=== PATIENT | female | born 1980 | race African-American/Black ===

== ENCOUNTER 2016-04-13 09:44 | Inpatient (IN) | payer OTHER ==
--- NOTE | 2016-04-13 10:02 | PDOC ---
History of Present Illness <Gilmar Ace - Last Filed: 04/13/16 13:34> - General History Source: Patient Exam Limitations: No Limitations - History of Present Illness Initial Comments: 04/13/16 10:19 The patient is a 35 year old female with significant past medical history of sciatica who presents to the ED with nausea, epigastric pain and vomiting since this morning. Patient notes that she had multiple vomiting episodes and reports bilious vomit, non bloody. She also reports loose stools. She notes that the last thing she ate last night was a piece of cake with icing and whole milk. She denies any fever, chills, constipation, headache, blurry vision. She denies dysuria, hesitancy, frequency or hematuria. <Radha Hutchinson - Last Filed: 04/13/16 13:52> - General Chief Complaint: Pain, Acute Stated Complaint: ABD PAIN., VOMITING Time Seen by Provider: 04/13/16 10:01 Past History - Past Medical History Other medical history: SIATIC PAIN - Psycho/Social/Smoking Cessation Hx Suicidal Ideation: No Smoking History: Never smoked Hx Alcohol Use: Yes (OCCASIONALLY) Drug/Substance Use Hx: No <Gilmar Ace - Last Filed: 04/13/16 13:34> <Radha Hutchinson - Last Filed: 04/13/16 13:52> - Past Medical History Allergies/Adverse Reactions: Allergies Allergy/AdvReac Type Severity Reaction Status Date / Time No Known Allergies Allergy Verified 04/13/16 09:51 Home Medications: Ambulatory Orders NK [No Known Home Medication] 04/13/16 Review of Systems - Review of Systems Able to Perform ROS?: Yes Comments:: 04/13/16 10:24 GENERAL/CONSTITUTIONAL: No fever or chills. No weakness. HEAD, EYES, EARS, NOSE AND THROAT: No change in vision. No ear pain or discharge. No sore throat. CARDIOVASCULAR: No chest pain or shortness of breath. RESPIRATORY: No cough, wheezing, or hemoptysis. GASTROINTESTINAL: + nausea, +vomiting, +diarrhea, +epigastric pain. No constipation. GENITOURINARY: No dysuria, frequency, or change in urination. MUSCULOSKELETAL: No joint or muscle swelling or pain. No neck or back pain. SKIN: No rash NEUROLOGIC: No headache, vertigo, loss of consciousness, or change in strength/ sensation. ENDOCRINE: No increased thirst. No abnormal weight change. HEMATOLOGIC/LYMPHATIC: No anemia, easy bleeding, or history of blood clots. ALLERGIC/IMMUNOLOGIC: No hives or skin allergy. <Radha Hutchinson - Last Filed: 04/13/16 13:52> *Physical Exam - Vital Signs Last Vital Signs Temp Pulse Resp BP Pulse Ox 97.5 F L 74 20 150/74 97 04/13/16 09:48 04/13/16 09:48 04/13/16 09:48 04/13/16 09:48 04/13/16 09:48 <Gilmar Ace - Last Filed: 04/13/16 13:34> - Vital Signs Last Vital Signs Temp Pulse Resp BP Pulse Ox 97.5 F L 74 20 150/74 97 04/13/16 09:48 04/13/16 09:48 04/13/16 09:48 04/13/16 09:48 04/13/16 09:48 - Physical Exam Comments: 04/13/16 10:23 GENERAL: Awake, alert, and fully oriented, in no acute distress HEAD: No signs of trauma EYES: PERRLA, EOMI, sclera anicteric, conjunctiva clear ENT: Auricles normal inspection, hearing grossly normal, nares patent, oropharynx clear without exudates. Moist mucosa NECK: Normal ROM, supple, no lymphadenopathy, JVD, or masses LUNGS: Breath sounds equal, clear to auscultation bilaterally. No wheezes, and no crackles HEART: Regular rate and rhythm, normal S1 and S2, no murmurs, rubs or gallops ABDOMEN: +epigastric tenderness, +obese. Soft, normoactive bowel sounds. No guarding, no rebound. No masses EXTREMITIES: Normal range of motion, no edema. No clubbing or cyanosis. No cords, erythema, or tenderness NEUROLOGICAL: Cranial nerves II through XII grossly intact. Normal speech, normal gait SKIN: Warm, Dry, normal turgor, no rashes or lesions noted. <Radha Hutchinson - Last Filed: 04/13/16 13:52> ED Treatment Course - LABORATORY CBC & Chemistry Diagram: 04/13/16 10:20 04/13/16 10:20 <Gilmar Ace - Last Filed: 04/13/16 13:34> - LABORATORY CBC & Chemistry Diagram: 04/13/16 10:20 04/13/16 10:20 - RADIOLOGY Radiology Studies Ordered: 04/13/16 12:45 EXAM#: TYPE/EXAM: RESULT: US/GALLBLADDER US Abdominal ultrasound, right upper quadrant: HISTORY: Biliary colic. Ultrasound of the right upper quadrant the abdomen is performed. The liver is somewhat heterogeneous echotexture without discrete mass seen. The liver measures 14.2 cm in length. Multiple stones are seen in the gallbladder. There is a gallstone in the neck of the gallbladder which may be impacted. Gallbladder wall is slightly thickened measuring 3.8 mm. CBD measures 5.8 mm. The pancreas is not visualized in its entirety. Visualized portions demonstrate no mass. The right kidney is not optimally visualized. The right kidney measures 9.4 cm in length with no evidence of hydronephrosis. Visualized abdominal aorta demonstrates no evidence of abdominal aortic aneurysm. Visualized IVC is unremarkable. Main portal vein demonstrates normal directional flow. IMPRESSION: Gallstones with possible impacted stone in the neck the gallbladder. Gallbladder wall thickening. Findings raise concern for cholecystitis. Findings were discussed with Dr. Ace at 12:39 PM on April 13, 2016. <Radha Hutchinson - Last Filed: 04/13/16 13:52> Medical Decision Making - Medical Decision Making 04/13/16 10:21 35 year old female with significant past medical history of sciatica who presents to the ED with nausea, epigastric pain and vomiting since this morning. She states she ate cake with icing and cup of whole milk before going to bed. Patient is actively vomiting bilious non bloody vomit in the ED. Will order US, labs and medication. Will reassess after the results are back. 04/13/16 12:42 Dr. Fabian was contacted to discuss the case after reviewing the US results. Who stated that he will perform gallbladder surgery tomorrow. 04/13/16 12:47 A call was placed to Dr. Ruiz at her office. Awaiting a call back. 04/13/16 13:[address] Ruiz that accepts the admission. <Radha Hutchinson - Last Filed: 04/13/16 13:52> *DC/Admit/Observation/Transfer - Discharge Dispostion Admit: Yes - Attestations Physician Attestion: 04/13/16 10:01 I, Dr. Gilmar Ace, attest that this document has been prepared under my direction and personally reviewed by me in its entirety. I further attest, that it accurately reflects all work, treatment, procedures and medical decision -making performed by me. <Gilmar Ace - Last Filed: 04/13/16 13:34> - Attestations Scribe Attestion: 04/13/16 10:23 Documentation prepared by DAVIDE Cisse, acting as medical billing assistant for Gilmar Ace MD/. <Radha Hutchinson - Last Filed: 04/13/16 13:52> Diagnosis at time of Disposition: Cholecystitis Cholelithiasis Qualifiers: Cholelithiasis location: gallbladder and bile duct Cholecystitis acuity: acute Biliary obstruction: without biliary obstruction - Discharge Dispostion Condition at time of disposition: Unchanged/Unknown
[2016-04-13] MEDS ORDERED: morphine CARPU-JECT 4 MG/1 ML DISP.SYRIN IVPUSH ONE (10:07)
[2016-04-13] MEDS ORDERED: ONDANSETRON 4 MG/2 ML VIAL IVPUSH ONE (10:07)
[2016-04-13] MEDS ORDERED: ONDANSETRON 4 MG/2 ML VIAL ONE (10:08)
[2016-04-13] MEDS ORDERED: morphine CARPU-JECT 4 MG/1 ML DISP.SYRIN ONE (10:08)
[2016-04-13 11:03] LABS: BASOPHIL 0.9 % (0-2.0); MCH 27.7 pg (25.7-33.7); MCHC 32.7 g/dl (32.0-36.0); MEAN CELL VOLUME 84.8 fl (80-96); MEAN PLT VOLUME 8.4 fl (7.5-11.1); NEUTROPHILS 76.9 % (42.8-82.8); PLATELET COUNT 292 K/MM3 (134-434); RDW 14.7 % (11.6-15.6); WHITE BLOOD COUNT 8.7 K/mm3 (4.0-10.0)
[2016-04-13 11:18] LABS: INR 1.05 (0.82-1.09); PROTHROMBIN TIME (PATIENT) 11.6 SEC (9.98-11.88)
[2016-04-13 11:33] LABS: ALBUMIN 3.8 g/dl (3.4-5.0); ALK PHOS 73 U/L (45-117); ANION GAP 11 (8-16); BILIRUBIN,TOTAL 0.6 mg/dL (0.2-1.0); CALCIUM 8.5 mg/dL (8.5-10.1); CO2 21 mmol/L (21-32); CREATININE 0.7 mg/dL (0.55-1.02); GLUCOSE,RANDOM 100 mg/dL (74-106); SGOT/AST 33 U/L (15-37); SGPT/ALT 26 U/L (12-78); TOT PROT 7.2 g/dl (6.4-8.2)
[2016-04-13] MEDS ORDERED: METRONIDAZOLE 500 MG PREMIXED 100 ML IVPB ONE ×2 (13:33→14:07)
[2016-04-13] MEDS ORDERED: LEVOFLOXACIN 750 MG IVPB 150 ML IVPB ONE ×2 (13:33→18:45)
[2016-04-13] MEDS ORDERED: ONDANSETRON *ODT* 4 MG TABLET SL ONE (13:38)
[2016-04-13] MEDS ORDERED: OXYCODONE/APAP 5/325MG COMBO TABLET PO ONE (13:38)
[2016-04-13] MEDS ORDERED: OXYCODONE/APAP 5/325MG COMBO TABLET ONE (13:59)
[2016-04-13] MEDS ORDERED: ONDANSETRON *ODT* 4 MG TABLET ONE (14:00)
--- NOTE | 2016-04-13 14:22 | CONSULT ---
- Consultation CONSULT REQUEST: Dr. Pedro Fabian CONSULT REQUEST: We have been asked to surgically evaluate this patient for cholecystitis. PCP: Aimee Ruiz HISTORY OF PRESENT ILLNESS: 35 yo F presented to [facility] ED complaining of RUQ/ epigastric abdominal pain x1 day. Patient states the pain work her up this morning at 7AM. The pain was constant and severe, improved now due to morphine she received in the ED. She states she was told she had gallstones one year ago following a CT. She states she occasionally has had abdominal pain in the past , but not like this. Her last meal was chicken and cake for dinner last night. Her last BM was liquid this morning. She admits nausea and several episodes of vomiting today. She denies fever, chills, CP, SOB, constipation, dysuria. PMHx: Right sciatic pain PSHx: Denies SocialHx: Denies tobacco use or alcohol abuse Home Medications Medication Instructions Recorded NK [No Known Home Medication] 04/13/16 Allergies Allergy/AdvReac Type Severity Reaction Status Date / Time No Known Allergies Allergy Verified 04/13/16 09:51 REVIEW OF SYSTEMS: CONSTITUTIONAL: Absent: fever, chills, generalized weakness CARDIOVASCULAR: Absent: chest pain, palpitations, lightheadedness, peripheral edema RESPIRATORY: Absent: cough, shortness of breath GASTROINTESTINAL: Present: abdominal pain, nausea, vomiting, diarrhea Absent: abdominal distension, constipation, melena, hematochezia GENITOURINARY: Absent: dysuria, frequency, urgency MUSCULOSKELETAL: Present: Right sided sciatic pain Absent: myalgia, arthralgia SKIN: Absent: rash, itching HEMATOLOGIC/IMMUNOLOGIC: Absent: easy bleeding, easy bruising NEUROLOGIC: Absent: headache, dizziness, unsteady gait PSYCHIATRIC: Absent: anxiety, depression PHYSICAL EXAM: GENERAL: Awake, alert, and fully oriented, in no acute distress. HEAD: Normal with no signs of trauma. EYES: PERRL, sclera anicteric, conjunctiva clear. NECK: Normal ROM, supple without JVD, or masses. LUNGS: Clear to auscultation bilat anteriorly. No wheezes, and no crackles. No accessory muscle use. HEART: Regular rate and rhythm. No murmurs ABDOMEN: Obese, Soft, not distended, normoactive bowel sounds, tender to palp in epigastric region/RUQ, no guarding, no rebound, no masses MUSCULOSKELETAL: Normal ROM at all joints UPPER EXTREMITIES: 2+ pulses, warm, well-perfused. No peripheral edema. LOWER EXTREMITIES: 2+ pulses, warm, well-perfused. No calf tenderness. No peripheral edema. NEUROLOGICAL: Normal speech, gait not observed. PSYCH: Cooperative. Good eye contact. Appropriate mood and affect. SKIN: Warm, dry, normal turgor, no rashes or lesions noted. Vital Signs Temperature 97.5 F L 04/13/16 09:48 Pulse Rate 74 04/13/16 09:48 Respiratory Rate 20 04/13/16 09:48 Blood Pressure 150/74 04/13/16 09:48 O2 Sat by Pulse Oximetry (%) 97 04/13/16 09:48 Lab Results CBC, BMP 04/13/16 10:20 04/13/16 10:20 Hepatic Panel Total Bilirubin 0.6 mg/dL (0.2-1.0) D 04/13/16 10:20 AST 33 U/L (15-37) D 04/13/16 10:20 ALT 26 U/L (12-78) D 04/13/16 10:20 Alkaline Phosphatase 73 U/L (45-117) 04/13/16 10:20 Albumin 3.8 g/dl (3.4-5.0) 04/13/16 10:20 Abdominal ultrasound, right upper quadrant: Multiple stones in the gallbladder. Gallstone in the neck of the gallbladder. Gallbladder wall slightly thickened measuring 3.8 mm. CBD 5.8 mm. Findings raise concern for cholecystitis. Problem List - Problems (1) Cholecystitis Assessment/Plan: Patient discussed with Dr. Fabian Plan for OR tomorrow for laparoscopic cholecystectomy, possible open Consent to be obtained by Dr. Fabian NPO after midnight, IV fluids Pain control DVT prophylaxis-SCDs Code(s): K81.9 - CHOLECYSTITIS, UNSPECIFIED (2) Cholelithiasis Code(s): K80.20 - CALCULUS OF GALLBLADDER W/O CHOLECYSTITIS W/O OBSTRUCTION Qualifiers: Cholelithiasis location: gallbladder and bile duct Cholecystitis acuity : acute Biliary obstruction: without biliary obstruction Visit type - Case Type Case Type: ED Admission - New patient This patient is new to me today: Yes Date on this admission: 04/13/16
[2016-04-13 14:55] VITALS: BMI 39.3
[2016-04-13] MEDS: HYDROmorphone HCL CARPU-JECT 1 MG/1 ML DISP.SYRIN IVPB PRN (18:33)
[2016-04-13] MEDS: SODIUM CHLORIDE 1,000 ML IV SCH (18:34)
--- NOTE | 2016-04-13 21:12 | HP ---
Admitting History and Physical - Primary Care Physician PCP: Aimee Ruiz - Admission History of Present Illness: The patient is a 35 year old female with significant past medical history of sciatica who presents to the ED with nausea, epigastric pain and vomiting since this morning. Patient notes that she had multiple vomiting episodes and reports bilious vomit, non bloody. She also reports loose stools. She notes that the last thing she ate last night was a piece of cake with icing and whole milk. - Smoking History Smoking history: Never smoked - Alcohol/Substance Use Hx Alcohol Use: Yes (OCCASIONALLY) Home Medications - Allergies Allergies/Adverse Reactions: Allergies Allergy/AdvReac Type Severity Reaction Status Date / Time levofloxacin [From Levaquin] Allergy Intermediate Hives Verified 04/13/16 19:08 - Home Medications Home Medications: Ambulatory Orders NK [No Known Home Medication] 04/13/16 Physical Examination Vital Signs: Vital Signs Temperature 97.8 F 04/13/16 19:17 Pulse Rate 57 L 04/13/16 19:17 Respiratory Rate 16 04/13/16 19:17 Blood Pressure 124/63 04/13/16 19:17 O2 Sat by Pulse Oximetry (%) 99 04/13/16 15:37 Constitutional: Yes: No Distress HENT: Yes: Atraumatic Neck: Yes: Supple Cardiovascular: Yes: Regular Rate and Rhythm Respiratory: Yes: CTA Bilaterally Gastrointestinal: Yes: Normal Bowel Sounds, Tenderness (RUQ) Extremities: Yes: WNL Problem List - Problems (1) Cholecystitis Code(s): K81.9 - CHOLECYSTITIS, UNSPECIFIED Assessment/Plan Laboratory Tests 04/13/16 04/13/16 04/13/16 10:20 10:20 10:37 WBC 8.7 RBC 4.94 Hgb 13.7 Hct 41.9 MCV 84.8 MCHC 32.7 RDW 14.7 Plt Count 292 MPV 8.4 Neutrophils % 76.9 D Lymphocytes % 16.1 D Monocytes % 5.1 Eosinophils % 1.0 Basophils % 0.9 INR 1.05 Sodium 141 Potassium 3.7 Chloride 109 H Carbon Dioxide 21 D Anion Gap 11 BUN 12 D Creatinine 0.7 Creat Clearance w eGFR > 60 Random Glucose 100 Calcium 8.5 Total Bilirubin 0.6 D AST 33 D ALT 26 D Alkaline Phosphatase 73 Total Protein 7.2 Albumin 3.8 Lipase 56 L Blood Type Antibody Screen 04/13/16 04/13/16 17:20 18:36 WBC RBC Hgb Hct MCV MCHC RDW Plt Count MPV Neutrophils % Lymphocytes % Monocytes % Eosinophils % Basophils % INR Sodium Potassium Chloride Carbon Dioxide Anion Gap BUN Creatinine Creat Clearance w eGFR Random Glucose Calcium Total Bilirubin AST ALT Alkaline Phosphatase Total Protein Albumin Lipase Blood Type O POSITIVE O POSITIVE Antibody Screen Negative Active Medications Generic Name Dose Route Start Last Admin Trade Name Freq PRN Reason Stop Dose Admin Hydromorphone HCl 1 mg 04/13/16 17:14 04/13/16 18:33 Dilaudid Injection - IVPB 1 mg Q3H PRN Administration PAIN Sodium Chloride 1,000 mls @ 100 mls/hr 04/13/16 17:15 04/13/16 18:34 Normal Saline - IV 100 mls/hr ASDIR SOLEDAD Administration A/P 1.ACUTE CHOLECYSTITIS NPO, IVF, IV ABX PRN PAIN MEDS SURGERY CONSULT GI/DVT PPX
[2016-04-14] MEDS: SODIUM CHLORIDE 1,000 ML IV SCH ×2 (04:17→17:32)
[2016-04-14 07:33] LABS: BASOPHIL 1.1 % (0-2.0); EOSINOPHIL 2.8 % (0-4.5); MCH 28.1 pg (25.7-33.7); MCHC 32.9 g/dl (32.0-36.0); MEAN CELL VOLUME 85.4 fl (80-96); MEAN PLT VOLUME 8.3 fl (7.5-11.1); PLATELET COUNT 278 K/MM3 (134-434); RDW 14.6 % (11.6-15.6); WHITE BLOOD COUNT 5.9 K/mm3 (4.0-10.0)
[2016-04-14] MEDS: PANTOPRAZOLE SODIUM 40 MG/100 ML PRE-DOCKED IVPB SCH (09:52)
[2016-04-14] MEDS ORDERED: PANTOPRAZOLE SODIUM 40 MG in SODIUM CHLORIDE 100 ML IVPB SCH (10:00)
[2016-04-14 10:59] LABS: URINE APPEARANCE CLEAR; URINE BILIRUBIN NEGATIVE (NEGATIVE); URINE BLOOD NEGATIVE (NEGATIVE); URINE COLOR AMBER; URINE GLUCOSE (UA) NEGATIVE (NEGATIVE); URINE KETONE 1+ (NEGATIVE); URINE LEUK ESTERASE NEGATIVE (NEGATIVE); URINE NITRITE NEGATIVE (NEGATIVE); URINE PROTEIN NEGATIVE (NEGATIVE); URINE UROBILINOGEN NEGATIVE E.U./dl (0.2-1.0)
[2016-04-14] MEDS ORDERED: LIDOCAINE HCL/PF 2% SDV 5ML VIAL ONE (11:19)
[2016-04-14] MEDS ORDERED: MIDAZOLAM HCL 2 MG/2 ML SINGLE DOSE VIAL ONE (11:20)
[2016-04-14] MEDS ORDERED: PROPOFOL 20 ML ONE ×4 (11:20→14:41)
[2016-04-14] MEDS ORDERED: ROCURONIUM BROMIDE 50 MG/5 ML VIAL ONE ×2 (11:20→12:32)
--- NOTE | 2016-04-14 11:29 | PN ---
Progress Note (short form) - Note Progress Note: Attending Surgeon: No c/o; for lap celeste possible open today; r/b/t alternatives to surgery discussed; possible conversion to an open procedure discussed as well; informed consent obtained. Pedro Fabian MD FACS
[2016-04-14] MEDS ORDERED: ceFAZolin SODIUM 1 GM VIAL ONE (11:55)
[2016-04-14] MEDS ORDERED: DEXAMETHASONE SOD PHOSPHATE 4 MG/1 ML VIAL ONE (12:07)
[2016-04-14] MEDS ORDERED: KETOROLAC TROMETHAMINE 30 MG/1 ML VIAL ONE (12:07)
[2016-04-14] MEDS ORDERED: ceFAZolin SODIUM 1 GM VIAL IVPB ONE (12:09)
[2016-04-14] MEDS ORDERED: ONDANSETRON 4 MG/2 ML VIAL IVPUSH PRN (13:43)
[2016-04-14] MEDS ORDERED: PROMETHAZINE HCL 25 MG/1 ML VIAL IVPUSH PRN (13:43)
[2016-04-14] MEDS ORDERED: LACTATED RINGERS SOLUTION 1,000 ML IV SCH (13:45)
[2016-04-14] MEDS ORDERED: NEOSTIGMINE METHYLSULFATE 0.5 MG/ML - 10 ML MDV ONE (13:57)
[2016-04-14] MEDS ORDERED: GLYCOPYRROLATE 0.2 MG/1 ML VIAL ONE (13:58)
--- NOTE | 2016-04-14 15:27 | OP ---
Operative Note - Note: Operative Date: 04/14/16 Pre-Operative Diagnosis: cholelithiasis; acute cholecystitsi Operation: lap celeste Findings: acute cholecystitis; cholelithiasis Post-Operative Diagnosis: Same as Pre-op Surgeon: Pedro Fabian Hair And Makeup Designer: Roslyn Jimenez Anesthesia: General Specimens Removed: gallbladder and contents Estimated Blood Loss (mls): 20
--- NOTE | 2016-04-14 15:32 | SURG ---
Surgery Land Surveying Survey Worker Note Land Surveying Survey Worker: Roslyn Jimenez PA-C Date of Service: 04/14/16 Diagnosis: cholelithiasis, acute cholecystitis Procedure: laparoscopic cholecystectomy I was present for the entirety of the operative procedure. For further detail, please refer to operative report. Visit type - Case Type Case Type: ED Admission
[2016-04-14] MEDS ORDERED: oxyCODONE HCL 5 MG TABLET PO PRN (15:38)
[2016-04-14] MEDS ORDERED: ACETAMINOPHEN 325 MG TABLET (FP) PO PRN (15:39)
[2016-04-14] MEDS ORDERED: PROMETHAZINE HCL 25 MG/1 ML VIAL ONE (15:49)
[2016-04-14] MEDS: CEFAZOLIN (PRE-DOCKED) 50 ML IVPB SCH (18:00)
--- NOTE | 2016-04-14 19:20 | PN ---
Progress Note, Physician - Current Medication List Current Medications: Active Medications Acetaminophen (Tylenol -) 650 mg PO Q4H PRN PRN Reason: FEVER OR PAIN Hydromorphone HCl (Dilaudid Injection -) 1 mg IVPB Q3H PRN PRN Reason: PAIN Last Admin: 04/13/16 18:33 Dose: 1 mg Sodium Chloride (Normal Saline -) 1,000 mls @ 100 mls/hr IV ASDIR SOLEDAD Last Admin: 04/14/16 17:32 Dose: 0 mls Lactated Ringer's (Lactated Ringers Solution) 1,000 mls @ 125 mls/hr IV ASDIR SOLEDAD Cefazolin Sodium (Ancef 1gm Ivpb (Pre-Docked)) 50 mls @ 100 mls/hr IVPB Q8H-IV SOLEDAD Ondansetron HCl (Zofran Injection) 4 mg IVPUSH Q6H PRN PRN Reason: NAUSEA AND/OR VOMITING Stop: 04/14/16 19:44 Oxycodone HCl (Roxicodone -) 5 mg PO Q4H PRN PRN Reason: PAIN Pantoprazole Sodium (Protonix 40mg Ivpb (Pre-Docked)) 40 mg IVPB DAILY SOLEDAD Last Admin: 04/14/16 09:52 Dose: 40 mg Promethazine HCl (Phenergan Injection -) 12.5 mg IVPUSH Q6H PRN PRN Reason: NAUSEA Stop: 04/14/16 19:44 Last Admin: 04/14/16 15:50 Dose: 12.5 mg - Objective Vital Signs: Vital Signs Temperature 98.5 F 04/14/16 18:18 Pulse Rate 54 L 04/14/16 18:18 Respiratory Rate 18 04/14/16 18:18 Blood Pressure 100/55 04/14/16 18:18 O2 Sat by Pulse Oximetry (%) 100 04/14/16 17:20 Constitutional: Yes: No Distress HENT: Yes: Atraumatic Neck: Yes: Supple Cardiovascular: Yes: Regular Rate and Rhythm Respiratory: Yes: CTA Bilaterally Gastrointestinal: Yes: Normal Bowel Sounds, Tenderness (AT THE SURGERY SITE) Extremities: Yes: WNL Neurological: Yes: Alert, Oriented Labs: CBC, BMP 04/14/16 06:00 INR, PTT INR 1.05 (0.82-1.09) 04/13/16 10:37 Problem List - Problems (1) Cholecystitis Code(s): K81.9 - CHOLECYSTITIS, UNSPECIFIED Assessment/Plan A/P 1.ACUTE CHOLECYSTITIS S/P SURGERY ON CLEAR LIQUID DIET PRN PAIN MEDS DC IN AM IF STABLE
[2016-04-14] MEDS: LACTATED RINGERS SOLUTION 1,000 ML IV SCH (21:48)
[2016-04-14 22:53] LABS: ALBUMIN 3.2 g/dl (3.4-5.0); ALK PHOS 85 U/L (45-117); ANION GAP 10 (8-16); BILIRUBIN,TOTAL 0.7 mg/dL (0.2-1.0); CALCIUM 8.4 mg/dL (8.5-10.1); CO2 22 mmol/L (21-32); CREATININE 0.7 mg/dL (0.55-1.02); GLUCOSE,RANDOM 97 mg/dL (74-106); SGOT/AST 135 U/L (15-37); SGPT/ALT 206 U/L (12-78); TOT PROT 6.4 g/dl (6.4-8.2)
[2016-04-15] MEDS: CEFAZOLIN (PRE-DOCKED) 50 ML IVPB SCH ×2 (01:47→10:32)
[2016-04-15] MEDS: LACTATED RINGERS SOLUTION 1,000 ML IV SCH (01:49)
[2016-04-15] MEDS: HYDROmorphone HCL CARPU-JECT 1 MG/1 ML DISP.SYRIN IVPB PRN (03:19)
[2016-04-15 08:06] LABS: MCH 27.7 pg (25.7-33.7); MCHC 32.5 g/dl (32.0-36.0); MEAN CELL VOLUME 85.3 fl (80-96); MEAN PLT VOLUME 8.4 fl (7.5-11.1); PLATELET COUNT 264 K/MM3 (134-434); RDW 14.3 % (11.6-15.6); WHITE BLOOD COUNT 9.4 K/mm3 (4.0-10.0)
[2016-04-15 08:17] LABS: ALBUMIN 2.9 g/dl (3.4-5.0); ALK PHOS 74 U/L (45-117); ANION GAP 8 (8-16); BILIRUBIN,TOTAL 0.8 mg/dL (0.2-1.0); CO2 26 mmol/L (21-32); CREATININE 0.7 mg/dL (0.55-1.02); GLUCOSE,RANDOM 89 mg/dL (74-106); SGOT/AST 89 U/L (15-37); SGPT/ALT 156 U/L (12-78); TOT PROT 5.6 g/dl (6.4-8.2)
--- NOTE | 2016-04-15 08:29 | PN ---
Progress Note, Physician Chief Complaint: Pt. pain controlled, no GA complaints. - Current Medication List Current Medications: Active Medications Acetaminophen (Tylenol -) 650 mg PO Q4H PRN PRN Reason: FEVER OR PAIN Last Admin: 04/14/16 22:07 Dose: 650 mg Hydromorphone HCl (Dilaudid Injection -) 1 mg IVPB Q3H PRN PRN Reason: PAIN Last Admin: 04/15/16 03:19 Dose: 1 mg Cefazolin Sodium (Ancef 1gm Ivpb (Pre-Docked)) 50 mls @ 100 mls/hr IVPB Q8H-IV SOLEDAD Last Admin: 04/15/16 01:47 Dose: 100 mls/hr Lactated Ringer's (Lactated Ringers Solution) 1,000 mls @ 100 mls/hr IV ASDIR SOLEDAD Last Admin: 04/15/16 01:49 Dose: 100 mls/hr Oxycodone HCl (Roxicodone -) 5 mg PO Q4H PRN PRN Reason: PAIN Pantoprazole Sodium (Protonix 40mg Ivpb (Pre-Docked)) 40 mg IVPB DAILY SOLEDAD Last Admin: 04/14/16 09:52 Dose: 40 mg - Objective Vital Signs: Vital Signs Temperature 98.7 F 04/15/16 06:05 Pulse Rate 60 04/15/16 06:05 Respiratory Rate 18 04/15/16 06:05 Blood Pressure 107/47 04/15/16 06:05 O2 Sat by Pulse Oximetry (%) 95 04/14/16 21:00 Constitutional: Yes: Well Nourished, No Distress, Calm Musculoskeletal: Yes: WNL Neurological: Yes: WNL, Alert, Oriented Labs: CBC, BMP 04/15/16 06:00 04/15/16 06:00 INR, PTT INR 1.05 (0.82-1.09) 04/13/16 10:37 Assessment/Plan POD#1 s/p Laparoscopic Cholecystectomy under GA. Doing well. D/C from anesthesia care.
--- NOTE | 2016-04-15 08:30 | PN ---
Progress Note (short form) - Note Progress Note: Surgery- Dr. Fabian Patient seen and examined. Patient states she is doing well, pain is controlled. She is tolerating a clear liquid diet. She has been urinating without issue and passing gas. She has been OOB. She denies fever/chills/ nausea/vomiting. Last Vital Signs Temp Pulse Resp BP Pulse Ox 98.7 F 60 18 107/47 95 04/15/16 06:05 04/15/16 06:05 04/15/16 06:05 04/15/16 06:05 04/14/16 21:00 CBC, BMP 04/15/16 06:00 04/15/16 06:00 Exam: Gen: NAD Abd: soft, nondistended, minimal tenderness to palp around port sites, dressings over port sites clean/dry/intact LE: soft, nontender Problem List - Problems (1) Cholecystitis Assessment/Plan: POD#1 s/p laparoscopic cholecystectomy Advance to regular diet DC IV fluids Pain control with PO pain medication DVT prophylaxis/OOB/ambulate DC once patient tolerating regular diet Discussed with Dr. Fabian Code(s): K81.9 - CHOLECYSTITIS, UNSPECIFIED (2) Cholelithiasis Code(s): K80.20 - CALCULUS OF GALLBLADDER W/O CHOLECYSTITIS W/O OBSTRUCTION Qualifiers: Cholelithiasis location: gallbladder and bile duct Cholecystitis acuity : acute Biliary obstruction: without biliary obstruction
[2016-04-15] MEDS ORDERED: HEPARIN NA (PORCINE) 5,000 UNITS/ML 1ML VIAL SQ SCH (10:00)
[2016-04-15] MEDS: PANTOPRAZOLE SODIUM 40 MG/100 ML PRE-DOCKED IVPB SCH (12:07)
[2016-04-15 14:07] VITALS: BP 114/66; PULSE 62; TEMP 97.8
--- NOTE | 2016-04-15 16:15 | DS ---
"Physical Examination Vital Signs: Vital Signs Temperature 97.8 F 04/15/16 14:05 Pulse Rate 62 04/15/16 14:05 Respiratory Rate 20 04/15/16 14:05 Blood Pressure 114/66 04/15/16 14:05 O2 Sat by Pulse Oximetry (%) 96 04/15/16 09:00 Constitutional: Yes: No Distress HENT: Yes: Atraumatic Neck: Yes: Supple Cardiovascular: Yes: Regular Rate and Rhythm Respiratory: Yes: CTA Bilaterally Gastrointestinal: Yes: Normal Bowel Sounds Extremities: Yes: WNL Neurological: Yes: Alert, Oriented Labs: CBC, BMP 04/15/16 06:00 04/15/16 06:00 Discharge Summary Reason For Visit: CHOLELITHIASIS; CHOLECYSTITIS Current Active Problems Cholecystitis (Acute) Cholelithiasis (Acute) Condition: Unchanged/Unknown - Instructions Diet, Activity, Other Instructions: Discharge Instructions Dear GREGG MCELROY, Post Operative Instructions Physical activity Resume your normal everyday activity as tolerated no heavy lifting or exercise until seen by your surgeon. You may walk unlimited saima of and climb stairs. You may resume driving the car when you feel safe and comfortable behind the wheel. Do not drive while taking narcotics. Wound care If you have a bandage, leave it on for 24-48 hours. After that time discard the outer bandage. If there are tapes on the skin under the outer bandage, leave them in place. They will peel off in the next 7 to 10 days. Do Not Peel them off. You may shower the day after surgery. If there are tapes present on the skin, you may shower over them. Diet Low fat diet. Eat healthy, high-fiber foods. Drink 6 to 8 glasses of liquid each day. This will assist in keeping your bowels are regular. Pain management You may take Tylenol (acetaminophen) or Ibuprofen (for example, Motrin, Advil etc.) Any pain prescription medication ordered should be taken as prescribed for moderate to severe pain. Call Dr. Fabian for any of the following: Severe pain not relieved by medication Fever of 101 or higher Excessive bleeding or drainage on dressing Call the office at [phone] for an appointment in seven days. This report was requested by: Renae Saleh | Reference #: [id number] Referrals: Pedro Fabian MD [Staff Physician] - - Home Medications Comprehensive Discharge Medication List: Ambulatory Orders Oxycodone HCl/Acetaminophen [Percocet 5-325 mg Tablet] 1 - 2 tab PO Q4H PRN #30 tablet MDD 8 04/15/16 tolerating diet dc home fu pmd as out pt"
--- NOTE | 2016-04-16 13:47 | PATH ---
Surgical Pathology Report Patient Name: GREGG MCELROY Med. Rec. #: [id number] /Age/Gender: 1980 (Age: 35) / F Account: [id number] Location: [facility] MED/SURG Taken: 04/14/2016 Received: 04/15/2016 Reported: 04/16/2016 Physicians: Pedro Fabian MD Specimen(s) Received GALLBLADDER Clinical History Cholelithiasis Final Diagnosis GALLBLADDER, CHOLECYSTECTOMY: CHRONIC CHOLECYSTITIS AND CHOLELITHIASIS. Electronically Signed Yunior William M.D. Gross Description Received in formalin, labeled "gallbladder" are 2 portions of a disrupted gallbladder measuring 4.0 x 2.7 x 1.5 cm and 7.8 x 3.0 x 2.4 cm. The smaller portion displays a 0.2 cm in length portion of cystic duct attached. The outer surface of the gallbladder is infante-albrecht, varies from smooth to shaggy and displays multifocal defects. The lumen contains green-yellow, sludge-like bile as well as multiple irregular to fragmented choleliths ranging from 0.1-1.2 cm in greatest dimension. The gallbladder mucosa is infante and focally eroded. The wall of the gallbladder averages 0.1 cm in thickness. Psychology Department Chair sections are submitted in one cassette. 04/15/201604/15/2016
--- NOTE | 2016-04-16 17:39 | OP ---
DATE OF OPERATION: 04/14/2016 PREOPERATIVE DIAGNOSIS: Chronic cholecystitis, cholelithiasis. POSTOPERATIVE DIAGNOSIS: Chronic cholecystitis, cholelithiasis. PROCEDURE: Laparoscopic cholecystectomy. SURGEON: Pedro Fabian M.D. MEASUREMENT AND VERIFICATION ENGINEER: DEBRA Peña ANESTHESIA: General. OPERATIVE FINDINGS: There was chronic cholecystitis and cholelithiasis. The rest of the findings were unremarkable. PROCEDURE: The patient was placed on operating table in supine position, and after the induction of general anesthesia, the patient's abdomen was prepped with Chloraprep and draped in sterile fashion. A timeout was taken, and pneumoperitoneum was established using a Sood cannula at the umbilicus. Additional 11-mm subxiphoid port and lateral 5-mm ports were placed, and laparoscopy carried out, and the previously noted findings were observed. The gallbladder was placed on cephalad and lateral retraction, and dissection was begun at the triangle of Calot. The cystic duct was identified and dissected proximally and distally for length, as was the cystic artery. A critical view of safety was taken. The duct was divided using Endoshears after being clipped twice proximally and twice distally with large hemoclips. The artery was similarly clipped and divided. Next, the gallbladder was removed from the liver bed in a retrograde fashion using the electrocautery. Prior to removal of the gallbladder from the edge of the liver, hemostasis was checked and noted to be good. The gallbladder was then removed from the edge of the liver, and brought out through the subxiphoid port after the fascial opening was increased to accommodate the large stone in the fundus of the gallbladder. Pneumoperitoneum was re-established, and hemostasis was checked and noted to be good. All ports were then removed under laparoscopic vision without evidence of bleeding from the port sites, and the pneumoperitoneum evacuated. The port sites were infiltrated with 0.5% Marcaine local anesthesia. All port site skin incisions were closed with 4-0 Biosyn in a subcuticular continuous fashion. Steri-Strips and band-aid dressings were placed, and the procedure terminated at this point. The patient was aroused from general anesthesia and transferred to the postanesthesia care unit in stable condition, awake and alert. Estimated blood loss 20 mL. Replacements crystalloid. Drains none. Specimen: gallbladder and contents to pathology. I, Pedro Fabian , was physically present in the operating room from the time the patient was placed on the operating room table until she was transferred to the post anesthesia care unit under my accompaniment. MD DIDI Cordova/[id number] MTDD
== END 2016-04-15 17:30 | disposition home or self-care (01) | DRG 419 ==
LOC: JER 09:44 → JERBED 13:39 → J7W 15:00
PROVIDERS: ADMIT Internal Medicine; ATTEND Internal Medicine
PROC: 0FT44ZZ Resection of Gallbladder, Percutaneous Endoscopic Approach (ICD-10-PCS; principal; 2016-04-14 13:30)
DX: K80.00 Calculus of gallbladder with acute cholecystitis without obstruction (principal); M54.30 Sciatica, unspecified side
CPT/HCPCS: 36415; 76705-TC; 80053; 81003; 83690; 84702; 84703; 85025; 85027; 85610; 86850; 86900; 86901; 87086; 88304-TC; 94760; 99282-25

== ENCOUNTER 2017-02-19 23:28 | Emergency (ER) | payer SELFPAY ==
[2017-02-19 23:37] VITALS: BP 109/75; PULSE 79; TEMP 96.8; BMI 45.1
[2017-02-20] MEDS ORDERED: SODIUM CHLORIDE 1,000 ML IV STA (00:34)
[2017-02-20] MEDS ORDERED: METOCLOPRAMIDE HCL INJECTION 10 MG/2 ML VIAL IVPUSH ONE (00:34)
--- NOTE | 2017-02-20 00:34 | PDOC ---
History of Present Illness - General Chief Complaint: Pain Stated Complaint: ABDOMINAL PAIN Time Seen by Provider: 02/20/17 00:33 History Source: Patient Exam Limitations: No Limitations - History of Present Illness Travel History: No Initial Comments: 02/20/17 03:23 36-year-old female without any past medical history presents to the emergency department complaining of supraumbilical tenderness x2 weeks on and off. Pain is described as 10/10 sharp intermittent nonradiating discomfort without nausea/ vomiting, fever/chills, chest pain, shortness of breath, flank pains, urinary symptoms: Frequency/urgency/hesitancy, hematuria. Patient states she noticed a bulge to her abdomen every time she coughs, sneezes or laughs. This evening, she was coughing and felt an immediate discomfort. When she looked down, she noticed her hernia. There are no alleviating factors but the pain is exacerbated on touch. Patient states she had laparoscopic cholecystectomy in March 2016 (x10 months ago). Patient was seen at [facility] 2 weeks ago for similar symptoms. Patient had a CT of her abdomen and pelvis with by mouth and IV contrast . Patient states she is unsure of the exact preliminary reading but knows it has something to do with fluid and hernia. Abdominal Pain Onset Location: reports: periumbilical Past History - Past Medical History Allergies/Adverse Reactions: Allergies Allergy/AdvReac Type Severity Reaction Status Date / Time levofloxacin [From Levaquin] Allergy Intermediate Hives Verified 02/19/17 23:37 Home Medications: Ambulatory Orders NK [No Known Home Medication] 02/20/17 - Suicide/Smoking/Psychosocial Hx Smoking History: Never smoked Hx Alcohol Use: No Drug/Substance Use Hx: No Review of Systems - Review of Systems Able to Perform ROS?: Yes Comments:: 02/20/17 03:26 CONSTITUTIONAL: Absent: fever, chills, diaphoresis, generalized weakness, malaise, loss of appetite HEENT: Absent: rhinorrhea, nasal congestion, throat pain, throat swelling, difficulty swallowing, mouth swelling, ear pain, eye pain, visual Changes CARDIOVASCULAR: Absent: chest pain, loss of consciousness, palpitations, irregular heart rate, peripheral edema RESPIRATORY: Absent: cough, shortness of breath, dyspnea with exertion, orthopnea, wheezing, stridor, hemoptysis GASTROINTESTINAL: +Suprapubic umbilical abd pain Absent:abdominal distension, nausea, vomiting, diarrhea, constipation, melena, hematochezia GENITOURINARY: Absent: dysuria, frequency, urgency, hesitancy, hematuria, flank pain, genital pain MUSCULOSKELETAL: Absent: myalgia, arthralgia, joint swelling SKIN: Absent: rash, itching, pallor HEMATOLOGIC/IMMUNOLOGIC: Absent: easy bleeding, easy bruising, lymphadenopathy, frequent infections ENDOCRINE: Absent: unexplained weight gain, unexplained weight loss, heat intolerance, cold intolerance NEUROLOGIC: Absent: headache, focal weakness or paresthesias, dizziness, unsteady gait, seizure, mental status changes, bladder or bowel incontinence PSYCHIATRIC: Absent: anxiety, depression, suicidal or homicidal ideation, hallucinations. Is the patient limited [place] proficient: No *Physical Exam - Vital Signs Last Vital Signs Temp Pulse Resp BP Pulse Ox 96.8 F L 79 22 109/75 99 02/19/17 23:35 02/19/17 23:35 02/19/17 23:35 02/19/17 23:35 02/19/17 23:35 - Physical Exam Comments: 02/20/17 03:27 GENERAL: Well developed, well nourished. Awake and alert. No acute distress. HEENT: Normocephalic, atraumatic. PERRLA, EOMI. No conjunctival pallor. Sclera are non- icteric. Moist mucous membranes. Oropharynx is clear. NECK: Supple. Full ROM. No JVD. Carotid pulses 2+ and symmetric, without bruits. No thyromegaly. No lymphadenopathy. CARDIOVASCULAR: Regular rate and rhythm. No murmurs, rubs, or gallops. Distal pulses are 2+ and symmetric. PULMONARY: No evidence of respiratory distress. Lungs clear to auscultation bilaterally. No wheezing, rales or rhonchi. ABDOMINAL: +tenderness/distention to supraumbilical abd ?ventral hernia Soft. No rebound or guarding. No organomegaly. Normoactive bowel sounds. MUSCULOSKELETAL Normal range of motion at all joints. No bony deformities or tenderness. No CVA tenderness. EXTREMITIES: No cyanosis. No clubbing. No edema. No calf tenderness. SKIN: Warm and dry. Normal capillary refill. No rashes. No jaundice. healed horizontal incision consistent with laparoscopic trocar to supraumbilical/ mid abd/right lat mid quadrant ED Treatment Course - LABORATORY CBC & Chemistry Diagram: 02/20/17 01:10 02/20/17 01:10 - RADIOLOGY Radiograph Interpretation: 02/20/17 03:28 CT abd/pelvis po/iv contrast: Moderate-sized ventral hernia containing several loops of small bowel with associated mesenteric edema suggesting incarceration, without bowel obstruction. Progress Note - Progress Note Progress Note: 0438hrs: Microblogged Hospitalist 0448hrs: Ventral hernia reduced and pt feels pain free. Ambulating without any difficulties 0455hrs: Pt informed the hernia has been successfully reduced as she is pain free. Patient states she will call her PMD and surgeon to have an elective repair of her ventral hernia. Patient was strongly advised to return back to the emergency department for recurrence, pain or any concerns. *DC/Admit/Observation/Transfer Diagnosis at time of Disposition: Ventral hernia Qualifiers: Obstruction and gangrene presence: without obstruction or gangrene Qualified Code(s): K43.9 - Ventral hernia without obstruction or gangrene - Discharge Dispostion Disposition: HOME Condition at time of disposition: Stable Admit: No - Referrals Referrals: Pedro Fabian MD [Staff Physician] - - Patient Instructions Printed Discharge Instructions: DI for Ventral Hernia Additional Instructions: As per our conversation, it is important for you to apply pressure on your abdomen when coughing, laughing, sneezing. It is important that you follow up with your surgeon or the one listed on your discharge for an elective ventral hernia repair. You ventral hernia has been successfully reduced while in the emergency department this evening. Follow-up with the emergency department for any recurrence, pain or any concerns. - Post Discharge Activity Forms/Work/School Notes: Back to Work
[2017-02-20] MEDS ORDERED: HYDROmorphone HCL CARPU-JECT 1 MG/1 ML DISP.SYRIN IVPUSH ONE (00:52)
[2017-02-20] MEDS ORDERED: METOCLOPRAMIDE HCL INJECTION 10 MG/2 ML VIAL ONE (01:01)
[2017-02-20] MEDS ORDERED: HYDROmorphone HCL CARPU-JECT 2 MG/1 ML DISP.SYRIN ONE (01:01)
[2017-02-20 01:24] LABS: BASO % 0.9 % (0-2.0); EOS % 0.8 % (0-4.5); HEMATOCRIT 39.6 % (32.4-45.2); HEMOGLOBIN 12.6 GM/dL (10.7-15.3); LYMPH % 19.4 % (8-40); MCH 27.2 pg (25.7-33.7); MCHC 31.9 g/dl (32.0-36.0); MEAN CELL VOLUME 85.4 fl (80-96); MEAN PLT VOLUME 8.3 fl (7.5-11.1); MONO % 5.7 % (3.8-10.2); NEUT % 73.2 % (42.8-82.8); PLATELET COUNT 343 K/MM3 (134-434); RBC 4.64 M/mm3 (3.60-5.2); RDW 14.6 % (11.6-15.6); WHITE BLOOD COUNT 11.4 K/mm3 (4.0-10.0)
[2017-02-20 01:49] LABS: ALK PHOS 80 U/L (45-117); AMYLASE 60 U/L (25-115); BILIRUBIN,TOTAL 0.4 mg/dL (0.2-1.0); BLOOD UREA NITROGEN 12 mg/dL (7-18); CALCIUM 9.3 mg/dL (8.5-10.1); CO2 27 mmol/L (21-32); CREATININE 0.8 mg/dL (0.55-1.02); GLUCOSE,RANDOM 106 mg/dL (74-106); LIPASE 68 U/L (73-393); SGOT/AST 18 U/L (15-37); SGPT/ALT 22 U/L (12-78); TOT PROT 7.6 g/dl (6.4-8.2)
[2017-02-20 02:34] LABS: ANION GAP 8 (8-16); CHLORIDE 109 mmol/L (98-107); POTASSIUM 4.3 mmol/L (3.5-5.1); SODIUM 144 mmol/L (136-145)
[2017-02-20 03:10] LABS: URINE APPEARANCE CLEAR; URINE BILIRUBIN NEGATIVE (NEGATIVE); URINE BLOOD NEGATIVE (NEGATIVE); URINE COLOR LTYELLOW; URINE GLUCOSE (UA) NEGATIVE (NEGATIVE); URINE KETONE TRACE (NEGATIVE); URINE LEUK ESTERASE NEGATIVE (NEGATIVE); URINE NITRITE NEGATIVE (NEGATIVE); URINE PROTEIN NEGATIVE (NEGATIVE); URINE UROBILINOGEN NEGATIVE mg/dL (0.2-1.0)
[2017-02-20 03:12] LABS: HCG,QUALITATIVE URINE NEGATIVE
== END 2017-02-20 05:16 | disposition home or self-care (01) ==
LOC: JER 23:28
PROC: 3E033NZ Introduction of Analgesics, Hypnotics, Sedatives into Peripheral Vein, Percutaneous Approach (ICD-10-PCS; principal; 2017-02-19)
PROC: 3E033GC Introduction of Other Therapeutic Substance into Peripheral Vein, Percutaneous Approach (ICD-10-PCS; 2017-02-19)
DX: K43.9 Ventral hernia without obstruction or gangrene (principal)
CPT/HCPCS: 36415; 74177-TC; 80053; 81003; 82150; 83690; 84703; 85025; 99283-25

== ENCOUNTER 2017-07-04 18:49 | Inpatient (IN) | payer OTHER ==
--- NOTE | 2017-07-04 19:29 | PDOC ---
Attending Attestation - Resident Resident Name: Amor,Mary - ED Attending Attestation I have performed the following: I have examined & evaluated the patient, The case was reviewed & discussed with the resident, I agree w/resident's findings & plan - HPI HPI: 07/04/17 21:52 Pt comes with vomiting and inabiliaty to eat and recurrent ventral herniation of bowel through her ventral defect. Pt states that she has been manually reducing her hernias multiple times weekly. Now with extreme pain. Pt had a SONO; we are awaiting CT scan. Pre-op labs pending. - Physicial Exam PE: 07/05/17 02:01 Agree with resident exam - Medical Decision Making 07/04/17 23:41 Patient Name: GREGG MCELROY THIS IS A PRELIMINARY REPORT FROM [facility] IMAGES: [id number] EXAM DATE AND TIME: 2017-07-04 23:07:42 EXAM: CT Abdomen and Pelvis Without Intravenous Contrast CLINICAL HISTORY: ventral hernia TECHNIQUE: Axial computed tomography images of the abdomen and pelvis without intravenous contrast. This CT exam was performed using one or more of the following dose reduction techniques: Automated exposure control, Adjustment of the mA and/or kV according to patient size, Use of iterative reconstruction technique. COMPARISON: Prior most recent study, same date. FINDINGS: LUNG BASES: LOWER THORAX: Visualized portions of the lung bases demonstrate NO CONFIDENTIALITY NOTICE: This information is intended only for the use of the recipient(s) named above. If you are not the intended recipient, or a person responsible for delivering it to the intended recipient, you are hereby notified that any disclosure, copying, distribution or use of any of the information contained in or attached to this transmission is STRICTLY PROHIBITED. If you have received this transmission in error, please immediately notify [facility] and destroy the original transmission and its attachments without saving them in any manner [address] [facility] [address] [place] [address] Phone: [phone] [phone]) Fax: Email: [email or web address] Patient Information: : 1980 Name: LILIBETH ESCOBEDO Sex: F Study Description: CT ABDOMEN AND PELVIS Modality: CT Location: [facility] Referring Physician: GARRETT RICHARD consolidations or effusions. MEDIASTINUM: A minimal hiatal hernia is present. ABDOMEN: LIVER: There is NO evidence of a liver mass or abnormal enlargement. The LEFT lobe of the liver is prominent and extends across the midline to the LEFT upper quadrant. This is considered a normal variant. GALLBLADDER AND BILE DUCTS: Postoperative changes are present consistent with cholecystectomy. PANCREAS: The visualized portions of the pancreas and pancreatic area are unremarkable. There is a focal collection in the gallbladder fossa; however measuring 1.8 centimeters. No ductal dilation. SPLEEN: No splenic masses or significant enlargement. ADRENALS: The RIGHT and LEFT adrenal glands demonstrate NO masses or abnormal enlargement. KIDNEYS AND URETERS: RIGHT KIDNEY: The RIGHT kidney demonstrates NO hydronephrosis, stones or masses. LEFT KIDNEY: The LEFT kidney demonstrates NO hydronephrosis, stones or masses. URETERS: The ureters demonstrate NO stones. Calcifications are present consistent with phleboliths. STOMACH AND BOWEL: STOMACH: The stomach is nondistended with thickened appearing kohli. NO other evidence to suggest inflammatory changes. This likely represents pseudo-thickening secondary to incompletely distended stomach. SMALL BOWEL: > FINDING CONSIDERED CRITICAL TO PATIENT CARE:Mildly fluid distended loops of small bowel in the LEFT mid abdomen. Large umbilical/periumbilical hernia in the anterior abdominal midline. Small bowel loops extending into this sac. There is mild distention of the loops with moderate edema in the mesenteric fat that extends into the sac. Distal loops extending from the sac are nondistended. COLON:There are colonic segments which are nondistended with thickened appearing kohli. NO other evidence to suggest inflammatory changes. This likely represents pseudo- thickening secondary to incompletely distended bowel. PELVIS: APPENDIX: The appendix is identified. There is NO evidence of appendicitis. BLADDER: The bladder is nondistended with thickened appearing kohli. NO other evidence to suggest inflammatory changes. This likely represents pseudo-thickening secondary to incompletely distended bladder. No stones. REPRODUCTIVE: NO pelvic masses or cysts >/=2cm.. ABDOMEN and PELVIS: INTRAPERITONEAL SPACE: NO acute changes are demonstrated. No free air. No significant fluid collection. BONES/JOINTS: No acute fracture. No dislocation. SOFT TISSUES: See above. VASCULATURE: AORTA: The aorta demonstrates NO evidence of aneurysm or rupture. LYMPH NODES: There are nonspecific lymph nodes are present in the mesentery. One of the largest nodes present, when measured in short axis diameter measures 9 mm. IMPRESSION: 1. > FINDING CONSIDERED CRITICAL TO PATIENT CARE:Mildly fluid distended loops of small bowel in the LEFT mid abdomen. Large umbilical/periumbilical hernia in the anterior abdominal midline. Small bowel loops extending into this sac. There is mild distention of the loops with moderate edema in the mesenteric fat that extends into the sac. Distal loops extending from the sac are nondistended. Findings are consistent with incarcerated hernia with obstruction. 2. Postoperative changes are present consistent with cholecystectomy. 3. The visualized portions of the pancreas and pancreatic area are unremarkable. There is a focal collection in the gallbladder fossa; however measuring 1.8 centimeters. The differential diagnosis includes residual fluid collection or dilatation of residual duct. 4. Nonspecific mesenteric lymph nodes as noted. The age of these findings is indeterminate and they may be acute and/or chronic. Differential includes nonspecific mesenteric adenitis which can be secondary to a variety of bacterial, viral, or other inflammatory processes including enteritis/gastroenteritis. Please correlate with any known history and/or clinical findings. 5. Likely pseudo-thickening in the colon; however in the proper clinical setting the differential also includes colitis. There are incidental and/or chronic findings also present as noted. CPT: 92861 CT Scan of the abdomen and pelvis without contrast. THIS DOCUMENT HAS BEEN ELECTRONICALLY SIGNED 07/05/17 02:01 Surgeon is aware of the patient, and pt is admitted to med surg. <Maggie Doyle - Last Filed: 07/05/17 02:02> Heart Score/ECG Review - ECG Intrepretation Comment:: 07/05/17 00:31 Completed @ 0:23:13 Normal sinus rhythm with sinus arrythmia Normal ECG Vent. Rate 65 bpm [place] interval 172 ms QRS duration 88 ms <Emmett Blancas - Last Filed: 07/05/17 00:31>
--- NOTE | 2017-07-04 19:30 | PDOC ---
History of Present Illness - General Chief Complaint: Pain, Acute Stated Complaint: ABDOMINAL PAIN Time Seen by Provider: 07/04/17 19:15 History Source: Patient Exam Limitations: No Limitations - History of Present Illness Initial Comments: This is a 36 YOF with h/o ventral hernia (seen here in the ED on 01/2017 for related abdominal pain and inability to reduce the hernia at home; CT showed e/ o incarceration of several loops of small bowel; it was reduced successfully here in the ED), and laparoscopic cholecystectomy (March 2016), who p/w abdominal pain at the site of her ventral hernia just above the navel. She notes that the hernia has actually been protruding more and more over the past year, but today while in the shower about one hour [employer] to the ED it protruded more than normal and became very painful (10/10 burning non-radiating supraumbilical pain). She was able to lay flat and reduce the hernia back to its normal size, but continues to have 7/10 pain. This is typical for her post- reduction pain. She additionally notes mild tenesmus at the time of maximal pain , chills, nausea, and one episode NBNB vomiting at that time. She has unchanged baseline diarrhea and had a BM today. She denies any chest pain, SOB, dizziness , constipation, or other symptoms. She has not spoken with Dr. Fabian about this hernia yet, but plans to call him for this appointment tomorrow. Past History - Past Medical History Allergies/Adverse Reactions: Allergies Allergy/AdvReac Type Severity Reaction Status Date / Time levofloxacin [From Levaquin] Allergy Intermediate Hives Verified 07/04/17 18:52 Home Medications: Ambulatory Orders NK [No Known Home Medication] 02/20/17 COPD: No Other medical history: DENIES. - Surgical History Cholecystectomy: Yes - Suicide/Smoking/Psychosocial Hx Smoking History: Never smoked Have you smoked in the past 12 months: No Hx Alcohol Use: No Drug/Substance Use Hx: No Substance Use Type: None Review of Systems - Review of Systems Able to Perform ROS?: Yes Constitutional: Yes: Chills (resolved). No: Fever, Unexplained wgt Loss HEENTM: No: Nose Congestion, Throat Pain Respiratory: No: Cough, Shortness of Breath Cardiac (ROS): No: Chest Pain, Palpitations ABD/GI: Yes: Diarrhea (chronic baseline), Nausea (resolved), Vomiting (resolved) , Other (abdominal pain, ventral hernia). No: Constipated : No: Burning, Dysuria Musculoskeletal: No: Back Pain, Neck Pain Integumentary: No: Bruising, Rash Neurological: No: Headache, Numbness, Tingling, Weakness, Dizziness Endocrine: No: Unexplained Weight Gain, Unexplained Weight Loss *Physical Exam - Vital Signs Last Vital Signs Temp Pulse Resp BP Pulse Ox 98 F 71 17 147/95 96 07/04/17 18:52 07/04/17 18:52 07/04/17 18:52 07/04/17 18:52 07/04/17 18:52 - Physical Exam General Appearance: Yes: Nourished, Appropriately Dressed, Obese, Other (very pleasant adult female in minimal distress laying flat on hospital bed and holding supraumbilical region with her hand, answering questions appropriately) HEENT: positive: EOMI, CHERRY, Normal Voice, Hearing Grossly Normal. negative: Scleral Icterus (R), Scleral Icterus (L), Nasal Congestion Neck: positive: Trachea midline, Supple. negative: Tender, Rigid Respiratory/Chest: positive: Lungs Clear, Normal Breath Sounds. negative: Respiratory Distress, Crackles, Rhonchi, Stridor, Wheezing Cardiovascular: positive: Regular Rhythm, Regular Rate, S1, S2. negative: Edema , JVD, Murmur Gastrointestinal/Abdominal: positive: Normal Bowel Sounds, Tender (mild supraumbilical tenderness to palpation without palpable hernia just superior to 2 cm laparoscopic incision site which is well-healed, abdomen with a few other laparoscopic incision sites which are also well healed, no additional abdominal ttp), Soft. negative: Organomegaly, Pulsatile Mass, Guarding Musculoskeletal: positive: Normal Inspection. negative: Decreased Range of Motion, Vertebral Tenderness Extremity: positive: Normal Capillary Refill, Normal Inspection, Normal Range of Motion. negative: Tender, Cyanosis Integumentary: positive: Normal Color, Dry, Warm. negative: Erythema, Rash, Bruising Neurologic: positive: library specialist II-XII NML intact (grossly), Fully Oriented, Alert, Normal Mood/Affect, Normal Response, Motor Strength 5/5. negative: Confused, Disoriented Heart Score/ECG Review #1 NSR, rate 65, normal axis and intervals, QTc 409, no concerning ST-T findings. ED Treatment Course - LABORATORY CBC & Chemistry Diagram: 07/04/17 22:05 07/04/17 22:05 Medical Decision Making - Medical Decision Making Adult patient p/w pain and lump suggestive of hernia. Initial Vital Signs Temp Pulse Resp BP Pulse Ox 98 F 71 17 147/95 96 07/04/17 18:52 07/04/17 18:52 07/04/17 18:52 07/04/17 18:52 07/04/17 18:52 Exam: Patient appears mildly uncomfortable, laying flat on bed, abdomen obese and difficult exam but no palpable hernia, +ttp supraumbilical region without peritoneal signs, no overlying skin changes. DDX IBNLT: simple/incarcerated/strangulated hernia, abscess, cyst, lymph node with lymphadenopathy, appendicitis, gastritis, PUD, colitis, SBO, mesenteric/ bowel ischemia, bowel perforation, constipation, gas, etc W/U ordered: CBCD CMP Mg Phos TX ordered: Morphine 2 mg, IVF Most likely hernia Unlikely appendicitis as pt has no fever, RLQ or umbilical abdominal pain, or anorexia. Unlikely gastritis as pt denies h/o significant GERD, no overuse of EtOH. Unlikely PUD as pt does not report relief of pain ~2 hours postprandially or with antacids. Unlikely colitis as clinically pts abdomen is not distended/no ascites, no fever, other VS wnl. Unlikely SBO as patient has been passing stool and gas normally per their baseline. Unlikely mesenteric ischemia as patient has no known A-fib or coagulopathy, no pain out of proportion. Unlikely bowel perforation as patient does not appear to have acute abdomen, no peritoneal signs. EKG: NSR, rate 65, normal axis and intervals, QTc 409, no concerning ST-T findings. CXR: Laboratory Tests 07/04/17 07/04/17 07/04/17 22:05 22:05 22:05 WBC 8.5 RBC 4.34 Hgb 12.5 Hct 36.7 MCV 84.6 MCH 28.7 MCHC 33.9 RDW 15.2 Plt Count 306 MPV 8.3 Neutrophils % 70.5 Lymphocytes % 22.4 Monocytes % 5.1 Eosinophils % 1.1 Basophils % 0.9 PT with INR 11.60 INR 1.03 PTT (Actin FS) 29.1 Sodium 141 Potassium 4.2 Chloride 108 H Carbon Dioxide 26 Anion Gap 7 L BUN 7 Creatinine 0.7 Creat Clearance w eGFR > 60 Random Glucose 90 Lactic Acid Calcium 8.9 Phosphorus 3.0 Magnesium 2.1 Total Bilirubin 0.6 D AST 17 ALT 21 Alkaline Phosphatase 74 Total Protein 7.3 Albumin 3.7 Serum , Qual Blood Type Antibody Screen 07/04/17 07/04/17 07/04/17 22:05 22:05 22:05 WBC RBC Hgb Hct MCV MCH MCHC RDW Plt Count MPV Neutrophils % Lymphocytes % Monocytes % Eosinophils % Basophils % PT with INR INR PTT (Actin FS) Sodium Potassium Chloride Carbon Dioxide Anion Gap BUN Creatinine Creat Clearance w eGFR Random Glucose Lactic Acid 0.9 Calcium Phosphorus Magnesium Total Bilirubin AST ALT Alkaline Phosphatase Total Protein Albumin Serum , Qual Negative Blood Type O POSITIVE Antibody Screen Negative US/CT results concerning for incarcerated (not strangulated) umbilical/ periumbilical hernia. Reassessment: Patient has continued pain that actually has been worsening, despite pain medications. Ordered is another dose Morphine 2 mg. Patient noted to have vomiting; QTc on EKG is 409, Zofran 8 mg IVPUSH is ordered. Spoke with Dr. Fabian (director geothermal operations for Surgery and also patient's surgeon who performed her lap cholecystectomy in 2017). We spoke about the results of the CT being concerning for incarcerated hernia but not for strangulation. We spoke about the patient's lack of skin findings on her abdominal exam. He will see her tomorrow; no need for emergent OR given lack of strangulation. The patients symptoms persist despite ED treatments. They require further hospital observation, workup, and treatment. Microblog sent to [facility] for admission. Spoke with Mary, in agreement patient to be admitted to Dr. Cai, Med/Surg Obs. Decision to Admit order placed to [facility] covering attending. *DC/Admit/Observation/Transfer Diagnosis at time of Disposition: Chronic diarrhea Ventral hernia Qualifiers: Obstruction and gangrene presence: without obstruction or gangrene Qualified Code(s): K43.9 - Ventral hernia without obstruction or gangrene Nausea and vomiting Qualifiers: Vomiting type: unspecified Vomiting Intractability: non-intractable Qualified Code(s): R11.2 - Nausea with vomiting, unspecified - Discharge Dispostion Condition at time of disposition: Stable Decision to Admit order: Yes - Referrals - Patient Instructions - Post Discharge Activity
[2017-07-04] MEDS ORDERED: morphine CARPU-JECT 2 MG/1 ML DISP.SYRIN IVPUSH ONE (21:35)
[2017-07-04] MEDS ORDERED: SODIUM CHLORIDE 0.9% 500 ML INFUS.BAG IV ONE (21:38)
[2017-07-04] MEDS ORDERED: morphine SULFATE 4 MG/ML VIAL ONE (21:42)
[2017-07-04 22:14] LABS: RBC 4.34 M/mm3 (3.60-5.2); WHITE BLOOD COUNT 8.5 K/mm3 (4.0-10.0)
[2017-07-04 22:18] LABS: BASO % 0.9 % (0-2.0); EOS % 1.1 % (0-4.5); HEMATOCRIT 36.7 % (32.4-45.2); HEMOGLOBIN 12.5 GM/dL (10.7-15.3); LYMPH % 22.4 % (8-40); MCH 28.7 pg (25.7-33.7); MCHC 33.9 g/dl (32.0-36.0); MEAN CELL VOLUME 84.6 fl (80-96); MEAN PLT VOLUME 8.3 fl (7.5-11.1); MONO % 5.1 % (3.8-10.2); NEUT % 70.5 % (42.8-82.8); PLATELET COUNT 306 K/MM3 (134-434); RDW 15.2 % (11.6-15.6)
[2017-07-04] MEDS ORDERED: ACETAMINOPHEN 1000 MG/100 ML VIAL (NON FORMULARY) IVPB ONE (22:22)
[2017-07-04] MEDS ORDERED: ACETAMINOPHEN INJECTION 100 ML IVPB ONE (22:25)
[2017-07-04 22:27] LABS: INR 1.03 (0.82-1.09); PROTHROMBIN TIME (PATIENT) 11.6 SEC (9.7-13.0)
[2017-07-04 22:30] LABS: ACTIVATED PTT 29.1 SECONDS (26.9-34.4)
[2017-07-04 22:38] LABS: ALBUMIN 3.7 g/dl (3.4-5.0); ANION GAP 7 (8-16); BILIRUBIN,TOTAL 0.6 mg/dL (0.2-1.0); BLOOD UREA NITROGEN 7 mg/dL (7-18); CALCIUM 8.9 mg/dL (8.5-10.1); CHLORIDE 108 mmol/L (98-107); CO2 26 mmol/L (21-32); CREATININE 0.7 mg/dL (0.55-1.02); GLUCOSE,RANDOM 90 mg/dL (74-106); MAGNESIUM 2.1 mg/dL (1.8-2.4); POTASSIUM 4.2 mmol/L (3.5-5.1); SGOT/AST 17 U/L (15-37); SGPT/ALT 21 U/L (12-78); SODIUM 141 mmol/L (136-145); TOT PROT 7.3 g/dl (6.4-8.2)
[2017-07-04 22:39] LABS: ALK PHOS 74 U/L (45-117)
[2017-07-04] MEDS ORDERED: ONDANSETRON 4 MG/2 ML VIAL ONE (22:47)
[2017-07-04] MEDS ORDERED: ONDANSETRON 4 MG/2 ML VIAL IVPB ONE (22:47)
[2017-07-04] MEDS ORDERED: SODIUM CHLORIDE 1,000 ML IV SCH (23:45)
--- NOTE | 2017-07-04 23:50 | PN ---
Teaching Attending Note Name of Resident: Neela Felipe ATTENDING PHYSICIAN STATEMENT I saw and evaluated the patient. I reviewed the resident's note and discussed the case with the resident. I agree with the resident's findings and plan as documented. SUBJECTIVE: 36 yo with hx. of ventral hernia, who presents with abdominal pain at site of her ventral hernia. Pain 10/10, burning in nature and supraumbilical pain, States she tried to reduce the hernia herself,but was unsuccessful. Denies any chest pain, pressure, or shortness of breath. OBJECTIVE: Physical: VS: Vital Signs Period Temp Pulse Resp BP Sys/Black Pulse Ox Last 24 Hr 98 F 71 17 147/95 96 GEN: NAD, Resting in bed, AA0X3 HEENT: NCAT, PERRL, Throat without erythema or exudate CARD: RRR S1,S2 RESP: CTAB ABD: BSx4, TTP preet-epigastric EXT: - C/C/E CBCD WBC 8.5 K/mm3 (4.0-10.0) 07/04/17 22:05 RBC 4.34 M/mm3 (3.60-5.2) 07/04/17 22:05 Hgb 12.5 GM/dL (10.7-15.3) 07/04/17 22:05 Hct 36.7 % (32.4-45.2) 07/04/17 22:05 MCV 84.6 fl (80-96) 07/04/17 22:05 MCHC 33.9 g/dl (32.0-36.0) 07/04/17 22:05 RDW 15.2 % (11.6-15.6) 07/04/17 22:05 Plt Count 306 K/MM3 (134-434) 07/04/17 22:05 MPV 8.3 fl (7.5-11.1) 07/04/17 22:05 CMP Sodium 141 mmol/L (136-145) 07/04/17 22:05 Potassium 4.2 mmol/L (3.5-5.1) 07/04/17 22:05 Chloride 108 mmol/L (98-107) H 07/04/17 22:05 Carbon Dioxide 26 mmol/L (21-32) 07/04/17 22:05 Anion Gap 7 (8-16) L 07/04/17 22:05 BUN 7 mg/dL (7-18) 07/04/17 22:05 Creatinine 0.7 mg/dL (0.55-1.02) 07/04/17 22:05 Creat Clearance w eGFR > 60 (>60) 07/04/17 22:05 Random Glucose 90 mg/dL (74-106) 07/04/17 22:05 Calcium 8.9 mg/dL (8.5-10.1) 07/04/17 22:05 Total Bilirubin 0.6 mg/dL (0.2-1.0) D 07/04/17 22:05 AST 17 U/L (15-37) 07/04/17 22:05 ALT 21 U/L (12-78) 07/04/17 22:05 Alkaline Phosphatase 74 U/L (45-117) 07/04/17 22:05 Total Protein 7.3 g/dl (6.4-8.2) 07/04/17 22:05 Albumin 3.7 g/dl (3.4-5.0) 07/04/17 22:05 1. > FINDING CONSIDERED CRITICAL TO PATIENT CARE:Mildly fluid distended loops of small bowel in the LEFT mid abdomen. Large umbilical/periumbilical hernia in the anterior abdominal midline. Small bowel loops extending into this sac. There is mild distention of the loops with moderate edema in the mesenteric fat that extends into the sac. Distal loops extending from the sac are nondistended. Findings are consistent with incarcerated hernia with obstruction. 2. Postoperative changes are present consistent with cholecystectomy. 3. The visualized portions of the pancreas and pancreatic area are unremarkable. There is a focal collection in the gallbladder fossa; however measuring 1.8 centimeters. The differential diagnosis includes residual fluid collection or dilatation of residual duct. 4. Nonspecific mesenteric lymph nodes as noted. The age of these findings is indeterminate and they may be acute and/or chronic. Differential includes nonspecific mesenteric adenitis which can be secondary to a variety of bacterial, viral, or other inflammatory processes including enteritis/gastroenteritis. Please correlate with any known history and/or clinical findings. 5. Likely pseudo-thickening in the colon; however in the proper clinical setting the differential also includes colitis. There are incidental and/or chronic findings also present as noted. CPT: 8[address] CT Scan of the abdomen and pelvis without contrast. Home Medications Medication Instructions Recorded NK [No Known Home Medication] 02/20/17 ASSESSMENT AND PLAN: 36 F with abdominal pain being admitted for incarcerated umblical hernia with obstruction 1.) Incarcerated umbilical hernia with obstruction - NPO - Type & Screen - Coags - Ancef - SX. Consulted and Spoken to by ED - Pain control - IVF - EKG 2.) Dvt Ppx - SCDs Place in [facility]-Sx
[2017-07-05] MEDS ORDERED: CEFAZOLIN 1 GM in DEXTROSE 5%-WATER - 50 ML IVPB ONE (00:29)
--- NOTE | 2017-07-05 00:47 | HP ---
CHIEF COMPLAINT: abdominal pain PCP: none HISTORY OF PRESENT ILLNESS: 36 year old female with a history of ventral hernia presents to the hospital today with 10/10, stabbing, mid abdominal pain. She states that earlier today, she was in the shower and felt her hernia protrude out, feeling severe pain. She additionally had 2 episodes of non-bloody non bilious emesis during this time. Patient reports being able to manually reduce the hernia, but states that she still experienced pain. She denies any changes to her urinary or bowel habits, reporting that she had watery stool yesterday. Denies chest pain, shortness of breath. She was seen by the ED last year (mid-late 2016) for the hernia, which was reduced and patient was sent home. She had a previous cholecystecomy in 04/14/[address] Fabian. ER course was notable for: (1) LA negative (2) vitals normal (3)CT + for incarcerated hernia with obstruction PAST MEDICAL HISTORY: ventral hernia PAST SURGICAL HISTORY: lap celeste 03/2016 (Dr. Fabian) Social History: Smoking: none Alcohol:socially Drugs: none Family History: aunt with gastric cancer Allergies levofloxacin [From Levaquin] Allergy (Intermediate, Verified 07/04/17 18:52) Hives HOME MEDICATIONS: Home Medications Medication Instructions Recorded NK [No Known Home Medication] 02/20/17 REVIEW OF SYSTEMS CONSTITUTIONAL: Absent: fever, chills, diaphoresis, generalized weakness, malaise, loss of appetite, weight change HEENT: Absent: rhinorrhea, nasal congestion, throat pain, throat swelling, difficulty swallowing, mouth swelling, ear pain, eye pain, visual changes CARDIOVASCULAR: Absent: chest pain, syncope, palpitations, irregular heart rate, lightheadedness , peripheral edema RESPIRATORY: Absent: cough, shortness of breath, dyspnea with exertion, orthopnea, wheezing, stridor, hemoptysis GASTROINTESTINAL: abdominal pain,nausea, vomiting Absent: abdominal distension, diarrhea, constipation, melena, hematochezia GENITOURINARY: Absent: dysuria, frequency, urgency, hesitancy, hematuria, flank pain, genital pain MUSCULOSKELETAL: Absent: myalgia, arthralgia, joint swelling, back pain, neck pain SKIN: Absent: rash, itching, pallor HEMATOLOGIC/IMMUNOLOGIC: Absent: easy bleeding, easy bruising, lymphadenopathy, frequent infections ENDOCRINE: Absent: unexplained weight gain, unexplained weight loss, heat intolerance, cold intolerance NEUROLOGIC: Absent: headache, focal weakness or paresthesias, dizziness, unsteady gait, seizure, mental status changes, bladder or bowel incontinence PSYCHIATRIC: Absent: anxiety, depression, suicidal or homicidal ideation, hallucinations. PHYSICAL EXAMINATION Vital Signs - 24 hr 07/04/17 18:52 Temperature 98 F Pulse Rate 71 Respiratory 17 Rate Blood Pressure 147/95 O2 Sat by Pulse 96 Oximetry (%) GENERAL: A&Ox3, no acute distress EYES: PERRLA, EOMI ENT: Moist mucus membranes NECK: No JVD LUNGS: CTA, no wheezes HEART: RRR, no murmurs ABDOMEN: Obese, Soft, tender to palpation in mid epigastrum, BS present MUSCULOSKELETAL: No CVA Tenderness EXTREMITIES: 2+ pulses, no edema. NEUROLOGICAL: Cranial nerves II-XII intact. Laboratory Results - last 24 hr 07/04/17 07/04/17 07/04/17 22:05 22:05 22:05 WBC 8.5 RBC 4.34 Hgb 12.5 Hct 36.7 MCV 84.6 MCH 28.7 MCHC 33.9 RDW 15.2 Plt Count 306 MPV 8.3 Neutrophils % 70.5 Lymphocytes % 22.4 Monocytes % 5.1 Eosinophils % 1.1 Basophils % 0.9 PT with INR 11.60 INR 1.03 PTT (Actin FS) 29.1 Sodium 141 Potassium 4.2 Chloride 108 H Carbon Dioxide 26 Anion Gap 7 L BUN 7 Creatinine 0.7 Creat Clearance w eGFR > 60 Random Glucose 90 Lactic Acid Calcium 8.9 Phosphorus 3.0 Magnesium 2.1 Total Bilirubin 0.6 D AST 17 ALT 21 Alkaline Phosphatase 74 Total Protein 7.3 Albumin 3.7 Serum , Qual Blood Type Antibody Screen 07/04/17 07/04/17 07/04/17 22:05 22:05 22:05 WBC RBC Hgb Hct MCV MCH MCHC RDW Plt Count MPV Neutrophils % Lymphocytes % Monocytes % Eosinophils % Basophils % PT with INR INR PTT (Actin FS) Sodium Potassium Chloride Carbon Dioxide Anion Gap BUN Creatinine Creat Clearance w eGFR Random Glucose Lactic Acid 0.9 Calcium Phosphorus Magnesium Total Bilirubin AST ALT Alkaline Phosphatase Total Protein Albumin Serum , Qual Negative Blood Type O POSITIVE Antibody Screen Negative ASSESSMENT/PLAN: 36 year old female with no past medical history is admitted to the hospital for abdominal pain 2/2 incarcerated ventral hernia #Incarcerated Ventral Hernia: has been reduced manually but patient is still experiencing pain and n/v -NPO for possible surgery tomorrow -Dr. Fabian aware and consultation appreciated -Type and Screen -f/u Coags -f/u EKG -repeat lactic acid -ancef 1 gm prior to surgery -pain control, tylenol and morphine PRN -IV NS @ 100cc/hr #FEN -IV NS @ 100cc/hr -replete lytes as necessary in AM -NPO for possible surgery #Prophylaxis -heparin 5000 subq TID, hold 90min prior to surgery #Disposition -admit to inpatient med-surg Visit type - Emergency Visit Emergency Visit: Yes ED Registration Date: 07/04/17 Care time: The patient presented to the Emergency Department on the above date and was hospitalized for further evaluation of their emergent condition. - New Patient This patient is new to me today: Yes Date on this admission: 07/05/17 - Critical Care Critical Care patient: No Hospitalist Screening - Colonoscopy Questionnaire Colonoscopy Questionnaire: Colonoscopy Questionnaire - Patient: 50 - 75 years old and never had a screening colonoscopy: No History of colon or rectal polyps, or CA: Unknown History of IBD, Crohn's disease or UC: Unknown History of abdominal radiation therapy as a child: Unknown - Relative: 1 with colon or rectal CA, or polyps at age 60 or younger: Unknown Colon or rectal CA diagnosed at age 45 or younger: Unknown Multiple relatives with colon or rectal CA: Unknown - Outcome: Screening Result: Negative Screen
[2017-07-05] MEDS ORDERED: ceFAZolin SODIUM 1 GM VIAL ONE ×2 (00:48→15:32)
[2017-07-05] MEDS ORDERED: morphine CARPU-JECT 2 MG/1 ML DISP.SYRIN IVPUSH ONE (01:57)
[2017-07-05] MEDS ORDERED: morphine SULFATE 4 MG/ML VIAL ONE (01:59)
[2017-07-05] MEDS: HEPARIN NA (PORCINE) 5,000 UNITS/ML 1ML VIAL SQ SCH ×4 (02:04→21:10)
[2017-07-05] MEDS ORDERED: ONDANSETRON 4 MG/2 ML VIAL ONE (02:28)
[2017-07-05] MEDS ORDERED: ONDANSETRON 4 MG/2 ML VIAL IVPUSH ONE ×2 (02:28→18:46)
[2017-07-05] MEDS ORDERED: ACETAMINOPHEN 1000 MG/100 ML VIAL (NON FORMULARY) IVPB ONE (05:21)
[2017-07-05] MEDS ORDERED: ACETAMINOPHEN INJECTION 100 ML IVPB ONE (05:22)
[2017-07-05 07:15] LABS: HEMOGLOBIN 11.8 GM/dL (10.7-15.3); MCH 28.7 pg (25.7-33.7); MCHC 33.8 g/dl (32.0-36.0); MEAN CELL VOLUME 85.1 fl (80-96); PLATELET COUNT 284 K/MM3 (134-434); RBC 4.11 M/mm3 (3.60-5.2); RDW 14.6 % (11.6-15.6); WHITE BLOOD COUNT 7.7 K/mm3 (4.0-10.0)
[2017-07-05 07:27] LABS: INR 1.11 (0.82-1.09); PROTHROMBIN TIME (PATIENT) 12.5 SEC (9.7-13.0)
[2017-07-05 07:54] LABS: ANION GAP 5 (8-16); BLOOD UREA NITROGEN 5 mg/dL (7-18); CALCIUM 8.5 mg/dL (8.5-10.1); CHLORIDE 106 mmol/L (98-107); CO2 27 mmol/L (21-32); GLUCOSE,RANDOM 108 mg/dL (74-106); POTASSIUM 4.3 mmol/L (3.5-5.1); SODIUM 138 mmol/L (136-145)
[2017-07-05 07:57] LABS: CREATININE 0.7 mg/dL (0.55-1.02); MAGNESIUM 2.1 mg/dL (1.8-2.4); PHOSPHOROUS 3.6 mg/dL (2.5-4.9)
--- NOTE | 2017-07-05 08:29 | CONSULT ---
- Consultation REQUESTING PROVIDER: CONSULT REQUEST: We have been asked to surgically evaluate this patient for management of an incarcerated incisional hernia PCP:Lolita Mayes HISTORY OF PRESENT ILLNESS:36 y/o A/A female s/p lap celeste 04/10 presented w/ nausea and vomiting and abdominal pain and a known hernia at her previous supraumbilical port site for her lap celeste; she has known about the hernia for some time and has been to the ER on # occasions but she never came back to see me b/o insurance issues; she is now here w/intractable pain and the hernia is interfering w/her ADL. PMHx: none PSHx: lap celeste 04/10 Home Medications Medication Instructions Recorded NK [No Known Home Medication] 02/20/17 Allergies Allergy/AdvReac Type Severity Reaction Status Date / Time levofloxacin [From Levaquin] Allergy Intermediate Hives Verified 07/04/17 18:52 PHYSICAL EXAM: GENERAL: Awake, alert, and fully oriented, in no acute distress. HEAD: Normal with no signs of trauma. EYES: sclera anicteric, conjunctiva clear. NECK: Normal ROM, supple without lymphadenopathy, JVD, or masses. ABDOMEN: Soft,tender over reducible supraumbilical (ventral/incisional) hernia, not distended, normoactive bowel sounds, no guarding, no rebound, no masses. No organomegaly. Healed port sites o/w MUSCULOSKELETAL: Normal ROM at all joints. No bony deformities or tenderness. No CVA tenderness. UPPER EXTREMITIES: 2+ pulses, warm, well-perfused. No cyanosis. Cap refill <2 seconds. No peripheral edema. LOWER EXTREMITIES: 2+ pulses, warm, well-perfused. No calf tenderness. No peripheral edema. NEUROLOGICAL: Normal speech, gait not observed. PSYCH: Cooperative. Good eye contact. Appropriate mood and affect. SKIN: Warm, dry, normal turgor, no rashes or lesions noted. Vital Signs Temperature 98.1 F 07/05/17 07:00 Pulse Rate 59 L 07/05/17 07:00 Respiratory Rate 07/05/17 07:00 Blood Pressure 113/47 07/05/17 07:00 O2 Sat by Pulse Oximetry (%) 96 07/04/17 18:52 Lab Results WBC 7.7 K/mm3 (4.0-10.0) 07/05/17 05:35 RBC 4.11 M/mm3 (3.60-5.2) 07/05/17 05:35 Hgb 11.8 GM/dL (10.7-15.3) 07/05/17 05:35 Hct 35.0 % (32.4-45.2) 07/05/17 05:35 MCV 85.1 fl (80-96) 07/05/17 05:35 MCHC 33.8 g/dl (32.0-36.0) 07/05/17 05:35 RDW 14.6 % (11.6-15.6) 07/05/17 05:35 Plt Count 284 K/MM3 (134-434) 07/05/17 05:35 Sodium 138 mmol/L (136-145) 07/05/17 05:35 Potassium 4.3 mmol/L (3.5-5.1) 07/05/17 05:35 Chloride 106 mmol/L (98-107) 07/05/17 05:35 Carbon Dioxide 27 mmol/L (21-32) 07/05/17 05:35 Anion Gap 5 (8-16) L 07/05/17 05:35 BUN 5 mg/dL (7-18) L 07/05/17 05:35 Creatinine 0.7 mg/dL (0.55-1.02) 07/05/17 05:35 Random Glucose 108 mg/dL (74-106) H 07/05/17 05:35 Calcium 8.5 mg/dL (8.5-10.1) 07/05/17 05:35 Blood Type O POSITIVE 07/04/17 22:05 Antibody Screen Negative 07/04/17 22:05 INR 1.11 (0.82-1.09) 07/05/17 05:35 CT a/p reviewed and previous ER visits reviewed IMP: incarcerated incisional hernia PLAN: For repair; possible mesh; r/b/t/a's d/w the patient and informed consent will be obtained; recurrence d/w her as well. Pedro Fabian MD FACS
[2017-07-05 09:12] VITALS: BMI 41.8
--- NOTE | 2017-07-05 10:51 | EKG ---
Test Reason : Blood Pressure : / mmHG Vent. Rate : 065 BPM Atrial Rate : 065 BPM P-R Int : 172 ms QRS Dur : 088 ms QT Int : 394 ms P-R-T Axes : 043 047 028 degrees QTc Int : 409 ms NORMAL SINUS RHYTHM WITH SINUS ARRHYTHMIA NORMAL ECG NO PREVIOUS ECGS AVAILABLE Confirmed by KEVIN CARTAGENA MD ([id number]) on 07/05/2017 10:51:07 AM Referred By: Confirmed By:KEVIN CARTAGENA MD
--- NOTE | 2017-07-05 13:41 | PN ---
Physical Exam: SUBJECTIVE: Patient seen and examined at bedside. Today, pt states that her abdominal pain is improved. Pt for OR today with Dr. Fabian during late afternoon. Denies SHERMAN, fever, SOB, chills, or chest pain. OBJECTIVE: Vital Signs Period Temp Pulse Resp BP Sys/Black Pulse Ox Last 24 Hr 98 F-98.1 F 59-71 17-18 113-147/47-95 96 GENERAL: The patient is resting in bed, awake, alert, and fully oriented, in no acute distress. HEAD: Normal with no signs of trauma. EYES: PERRL, extraocular movements intact, sclera anicteric, conjunctiva clear. ENT: Ears normal, nares patent, oropharynx clear without exudates, moist mucous membranes. NECK: Trachea midline, supple. LUNGS: Breath sounds equal, clear to auscultation bilaterally, no wheezes, no crackles, no accessory muscle use. +poor inspiratory effort HEART: Regular rate and rhythm, S1, S2 without murmur, rub or gallop. ABDOMEN: Soft, +TTP in mid-epigastrium, nondistended, +hypoactive bowel sounds EXTREMITIES: 2+ posterior tibial pulses, warm, well-perfused, no edema. NEUROLOGICAL: Cranial nerves II through XII grossly intact. Normal speech PSYCH: Normal mood, normal affect. SKIN: Warm, dry, normal turgor Laboratory Results - last 24 hr 07/04/17 07/04/17 07/04/17 22:05 22:05 22:05 WBC 8.5 RBC 4.34 Hgb 12.5 Hct 36.7 MCV 84.6 MCH 28.7 MCHC 33.9 RDW 15.2 Plt Count 306 MPV 8.3 Neutrophils % 70.5 Lymphocytes % 22.4 Monocytes % 5.1 Eosinophils % 1.1 Basophils % 0.9 PT with INR 11.60 INR 1.03 PTT (Actin FS) 29.1 Sodium 141 Potassium 4.2 Chloride 108 H Carbon Dioxide 26 Anion Gap 7 L BUN 7 Creatinine 0.7 Creat Clearance w eGFR > 60 Random Glucose 90 Lactic Acid Calcium 8.9 Phosphorus 3.0 Magnesium 2.1 Total Bilirubin 0.6 D AST 17 ALT 21 Alkaline Phosphatase 74 Total Protein 7.3 Albumin 3.7 Serum , Qual Blood Type Antibody Screen 07/04/17 07/04/17 07/04/17 22:05 22:05 22:05 RBC Creat Clearance w eGFR Random Glucose Lactic Acid 0.9 Phosphorus Albumin Serum , Qual Negative Blood Type O POSITIVE Antibody Screen Negative 07/05/17 07/05/17 07/05/17 05:35 05:35 05:35 WBC 7.7 RBC 4.11 Hgb 11.8 Hct 35.0 MCV 85.1 MCH 28.7 MCHC 33.8 RDW 14.6 Plt Count 284 MPV 8.0 Neutrophils % Basophils % PT with INR 12.50 INR 1.11 PTT (Actin FS) Sodium 138 Potassium 4.3 Chloride 106 Carbon Dioxide 27 Anion Gap 5 L BUN 5 L Creatinine 0.7 Creat Clearance w eGFR Random Glucose 108 H Lactic Acid Calcium 8.5 Phosphorus 3.6 Magnesium 2.1 Total Bilirubin Active Medications Generic Name Dose Route Start Last Admin Trade Name Freq PRN Reason Stop Dose Admin Heparin Sodium (Porcine) 5,000 unit 07/05/17 02:00 07/05/17 12:37 Heparin - SQ Not Given Q8H-IV SOLEDAD Sodium Chloride 1,000 mls @ 100 mls/hr 07/04/17 23:45 07/05/17 00:08 Normal Saline - IV 100 mls/hr ASDIR SOLEDAD Administration 07/04/17: Abdomen US: findings are suggestive of a ventral/umbilical hernia sac with herniating bowel loops and fluid. Please correlate with a CT scan of abdomen and pelvis done later on the same date 07/04/17: Abdomen/Pelvis CT: slightly dilated fluid containing proximal and mid small bowel loops in the L upper and mid abdomen bleeding into a large umbillical/supraumbilical hernia sac containing small bowel loops, a small amount of fluid and mesenteric stranding. Distal small bowel loops are not dilated. Although the hernia defect in the abdominal wall measures approx 3cm in maximum dimension, findings are suggestive of incarceration with mid small bowel obstruction likely partial. s/p cholecystectomy with a 1.8 cm fluid collection in the GB fossa. Scattered subcentimeter mesenteric LN wihch are nonspecific, likely post inflammatory/infectious. 07/04/17: CXR: RUQ clips. Weak inspiration. No acute pathology ASSESSMENT/PLAN: 36 y/o F with PMH ventral hernia, who presented to the ED c/o 10/10 stabbing pain in her mid-abdomen. Pt found to have incarcerated incisional ventral hernia. #s/p Incarcerated ventral hernia repair - PO Day 0 -afebrile, without sepsis, pt is not tachy, resting comfortably -surgery has been completed -Dr. Fabian -NPO -Received ancef 1gm x 1 prior to OR -IVF LR 125 cc/hr -Pain control as per surgery: roxicodone 5mg PO q4h PRN -Nausea zofran 4mg PO q6h PRN -Post-op PT for mobilization #F/E/N -IV LR 125 cc/hr -Continue to monitor lytes -NPO, will advance diet once flatus. #PPX -SCD's, Hep SQ 5000 TID #Dispo post-op care Visit type - Emergency Visit Emergency Visit: No - New Patient This patient is new to me today: Yes Date on this admission: 07/05/17 - Critical Care Critical Care patient: No
[2017-07-05] MEDS ORDERED: MIDAZOLAM HCL 2 MG/2 ML SINGLE DOSE VIAL ONE (15:11)
[2017-07-05] MEDS ORDERED: fentaNYL CITRATE 250 MCG/5 ML VIAL ONE (15:30)
[2017-07-05] MEDS ORDERED: LIDOCAINE HCL/PF 2% SDV 5ML VIAL ONE (15:31)
[2017-07-05] MEDS ORDERED: PROPOFOL 20 ML ONE (15:31)
[2017-07-05] MEDS ORDERED: ROCURONIUM BROMIDE 50 MG/5 ML VIAL ONE (15:32)
[2017-07-05] MEDS ORDERED: ceFAZolin SODIUM 1 GM VIAL IVPB ONE (15:36)
[2017-07-05] MEDS ORDERED: DEXAMETHASONE SOD PHOSPHATE 4 MG/1 ML VIAL ONE (15:48)
--- NOTE | 2017-07-05 16:32 | PN ---
Teaching Attending Note Name of Resident: Kym Solano ATTENDING PHYSICIAN STATEMENT I saw and evaluated the patient. I reviewed the resident's note and discussed the case with the resident. I agree with the resident's findings and plan as documented. SUBJECTIVE: OBJECTIVE: Vital Signs Temperature 98.6 F 07/05/17 17:05 Pulse Rate 60 07/05/17 17:50 Respiratory Rate 16 07/05/17 17:50 Blood Pressure 112/58 07/05/17 17:50 O2 Sat by Pulse Oximetry (%) 97 07/05/17 17:50 CBCD WBC 7.7 K/mm3 (4.0-10.0) 07/05/17 05:35 RBC 4.11 M/mm3 (3.60-5.2) 07/05/17 05:35 Hgb 11.8 GM/dL (10.7-15.3) 07/05/17 05:35 Hct 35.0 % (32.4-45.2) 07/05/17 05:35 MCV 85.1 fl (80-96) 07/05/17 05:35 MCHC 33.8 g/dl (32.0-36.0) 07/05/17 05:35 RDW 14.6 % (11.6-15.6) 07/05/17 05:35 Plt Count 284 K/MM3 (134-434) 07/05/17 05:35 MPV 8.0 fl (7.5-11.1) 07/05/17 05:35 CMP Sodium 138 mmol/L (136-145) 07/05/17 05:35 Potassium 4.3 mmol/L (3.5-5.1) 07/05/17 05:35 Chloride 106 mmol/L (98-107) 07/05/17 05:35 Carbon Dioxide 27 mmol/L (21-32) 07/05/17 05:35 Anion Gap 5 (8-16) L 07/05/17 05:35 BUN 5 mg/dL (7-18) L 07/05/17 05:35 Creatinine 0.7 mg/dL (0.55-1.02) 07/05/17 05:35 Creat Clearance w eGFR > 60 (>60) 07/04/17 22:05 Random Glucose 108 mg/dL (74-106) H 07/05/17 05:35 Calcium 8.5 mg/dL (8.5-10.1) 07/05/17 05:35 Total Bilirubin 0.6 mg/dL (0.2-1.0) D 07/04/17 22:05 AST 17 U/L (15-37) 07/04/17 22:05 ALT 21 U/L (12-78) 07/04/17 22:05 Alkaline Phosphatase 74 U/L (45-117) 07/04/17 22:05 Total Protein 7.3 g/dl (6.4-8.2) 07/04/17 22:05 Albumin 3.7 g/dl (3.4-5.0) 07/04/17 22:05 Current Medications Generic Name Dose Route Start Last Admin Trade Name Freq PRN Reason Stop Dose Admin Fentanyl 50 mcg 07/05/17 18:37 Sublimaze Injection - IVPUSH [id number] PRN PAIN-PACU ORDER X 4 DOSES ONLY Heparin Sodium (Porcine) 5,000 unit 07/05/17 22:00 Heparin - SQ TID SOLEDAD Sodium Chloride 1,000 mls @ 100 mls/hr 07/05/17 18:37 Normal Saline - IV ASDIR SOLEDAD Ondansetron HCl 4 mg 07/05/17 18:37 Zofran Injection IVPUSH Q6H PRN NAUSEA AND/OR VOMITING Oxycodone HCl 5 mg 07/05/17 18:37 Roxicodone - PO 07/06/17 17:00 Q4H PRN PAIN LEVEL 1-5 Promethazine HCl 12.5 mg 07/05/17 18:37 Phenergan Injection - IVPB Q6H PRN NAUSEA-FOR RESCUE AFTER 15 MIN Home Medications Medication Instructions Recorded NK [No Known Home Medication] 02/20/17 PE: positive for tenderness around umbilacal area. 07/04/17: Abdomen US: findings are suggestive of a ventral/umbilical hernia sac with herniating bowel loops and fluid. Please correlate with a CT scan of abdomen and pelvis done later on the same date 07/04/17: Abdomen/Pelvis CT: slightly dilated fluid containing proximal and mid small bowel loops in the L upper and mid abdomen bleeding into a large umbillical/supraumbilical hernia sac containing small bowel loops, a small amount of fluid and mesenteric stranding. Distal small bowel loops are not dilated. Although the hernia defect in the abdominal wall measures approx 3cm in maximum dimension, findings are suggestive of incarceration with mid small bowel obstruction likely partial. s/p cholecystectomy with a 1.8 cm fluid collection in the GB fossa. Scattered subcentimeter mesenteric LN wihch are nonspecific, likely post inflammatory/infectious. 07/04/17: CXR: RUQ clips. Weak inspiration. No acute pathology ASSESSMENT/PLAN: Patient is a 36 y/o F with PMH ventral hernia, who presented to the ED with severe mid-abdomenal pain with incarcerated incisional ventral hernia. #POD #0 for Incarcerated ventral hernia repair : surgeon Dr. Fabian , NPO, Ancef IV x 1 dose prior to surgery. IVF LR 125 cc/hr -Pain control as per surgery, zofran for nausea. DVT px: Heparin
[2017-07-05] MEDS ORDERED: NEOSTIGMINE METHYLSULFATE 0.5 MG/ML - 10 ML MDV ONE (16:42)
[2017-07-05] MEDS ORDERED: GLYCOPYRROLATE 0.2 MG/1 ML VIAL ONE ×2 (16:42→16:44)
[2017-07-05] MEDS ORDERED: BUPIVACAINE HCL/PF (5 MG/ML) 30 ML VIAL IJ ONE (16:44)
[2017-07-05] MEDS ORDERED: PROMETHAZINE HCL 25 MG/1 ML VIAL IVPB PRN ×2 (17:01→18:37)
[2017-07-05] MEDS ORDERED: oxyCODONE HCL 5 MG TABLET PO PRN ×2 (17:01→18:37)
[2017-07-05] MEDS ORDERED: ONDANSETRON 4 MG/2 ML VIAL IVPUSH PRN ×2 (17:04→18:37)
--- NOTE | 2017-07-05 17:14 | SURG ---
Surgery Prepress Operator Note Prepress Operator: Shine Saleem PA-C Date of Service: 07/05/17 Diagnosis: Incarcerated incisional hernia Procedure: Open incisional hernia repair I was present for the entirety of the operative procedure. For further detail, please refer to operative report.
[2017-07-05] MEDS ORDERED: LACTATED RINGERS SOLUTION 1,000 ML IV SCH (17:15)
[2017-07-06] MEDS: SODIUM CHLORIDE 1,000 ML IV SCH ×2 (05:26→07:31)
[2017-07-06] MEDS: HEPARIN NA (PORCINE) 5,000 UNITS/ML 1ML VIAL SQ SCH ×2 (05:26→15:47)
[2017-07-06] MEDS ORDERED: ACETAMINOPHEN 325 MG TABLET (FP) PO PRN (05:39)
[2017-07-06 08:12] LABS: BASO % 0.2 % (0-2.0); HEMATOCRIT 35.9 % (32.4-45.2); HEMOGLOBIN 11.7 GM/dL (10.7-15.3); LYMPH % 12.8 % (8-40); MCH 27.9 pg (25.7-33.7); MCHC 32.5 g/dl (32.0-36.0); MEAN CELL VOLUME 85.7 fl (80-96); MONO % 3.9 % (3.8-10.2); NEUT % 83.1 % (42.8-82.8); RBC 4.19 M/mm3 (3.60-5.2); RDW 15.1 % (11.6-15.6); WHITE BLOOD COUNT 9.4 K/mm3 (4.0-10.0)
--- NOTE | 2017-07-06 08:46 | PN ---
Physical Exam: SUBJECTIVE: Patient seen and examined at bedside. Overnight, pt returned from OR. Voiding freely, abdomen binder intact. Pt medicated with morphine initially for pain, however had one episode of NBNB emesis. Continued with tylenol. Today , pt states that her abdomen is sore. Tolerating diet, has been eating apple sauce and due for breakfast. No flatus or BM yet, has been OOB. Denies chest pain, SOB, or changes in urinary function. OBJECTIVE: Vital Signs Period Temp Pulse Resp BP Sys/Black Pulse Ox Last 24 Hr 97.8 F-98.6 F 54-68 16-20 94-118/47-69 95-100 GENERAL: The patient is awake, alert, and fully oriented, in no acute distress. HEAD: Normal with no signs of trauma. EYES: PERRL, extraocular movements intact, sclera anicteric, conjunctiva clear. No ptosis. ENT: Ears normal, nares patent, oropharynx clear without exudates, moist mucous membranes. NECK: Trachea midline, supple. LUNGS: Breath sounds equal, clear to auscultation bilaterally, no wheezes, no crackles, no accessory muscle use. HEART: Regular rate and rhythm, S1, S2 without murmur, rub or gallop. ABDOMEN: Soft, obese, diffusely TTP superior to umbilicus, nondistended, normoactive bowel sounds. +surgical site intact with mild serosanguineous drainage. EXTREMITIES: 2+ posterior tibial pulses, warm, well-perfused, no edema. NEUROLOGICAL: Cranial nerves II through XII grossly intact. Normal speech PSYCH: Positive mood, normal affect. SKIN: Warm, dry, normal turgor Laboratory Results - last 24 hr 07/05/17 07/06/17 08:51 07:00 WBC 9.4 RBC 4.19 Hgb 11.7 Hct 35.9 MCV 85.7 MCH 27.9 MCHC 32.5 RDW 15.1 Neutrophils % 83.1 H Lymphocytes % 12.8 D Monocytes % 3.9 Eosinophils % 0.0 D Basophils % 0.2 Blood Type O POSITIVE Antibody Screen Negative Active Medications Generic Name Dose Route Start Last Admin Trade Name Freq PRN Reason Stop Dose Admin Acetaminophen 650 mg 07/06/17 05:39 07/06/17 05:56 Tylenol - PO 650 mg Q6H PRN Administration PAIN LEVEL 1-5 Fentanyl 50 mcg 07/05/17 18:37 Sublimaze Injection - IVPUSH [id number] PRN PAIN-PACU ORDER X 4 DOSES ONLY Heparin Sodium (Porcine) 5,000 unit 07/05/17 22:00 07/06/17 05:26 Heparin - SQ 5,000 unit TID SOLEDAD Administration Sodium Chloride 1,000 mls @ 100 mls/hr 07/05/17 18:37 07/06/17 07:31 Normal Saline - IV Not Given ASDIR SOLEDAD Ondansetron HCl 4 mg 07/05/17 18:37 Zofran Injection IVPUSH Q6H PRN NAUSEA AND/OR VOMITING Oxycodone HCl 5 mg 07/05/17 18:37 Roxicodone - PO 07/06/17 17:00 Q4H PRN PAIN LEVEL 1-5 Promethazine HCl 12.5 mg 07/05/17 18:37 Phenergan Injection - IVPB Q6H PRN NAUSEA-FOR RESCUE AFTER 15 MIN 07/04/17: Abdomen US: findings are suggestive of a ventral/umbilical hernia sac with herniating bowel loops and fluid. Please correlate with a CT scan of abdomen and pelvis done later on the same date 07/04/17: Abdomen/Pelvis CT: slightly dilated fluid containing proximal and mid small bowel loops in the L upper and mid abdomen bleeding into a large umbillical/supraumbilical hernia sac containing small bowel loops, a small amount of fluid and mesenteric stranding. Distal small bowel loops are not dilated. Although the hernia defect in the abdominal wall measures approx 3cm in maximum dimension, findings are suggestive of incarceration with mid small bowel obstruction likely partial. s/p cholecystectomy with a 1.8 cm fluid collection in the GB fossa. Scattered subcentimeter mesenteric LN wihch are nonspecific, likely post inflammatory/infectious. 07/04/17: CXR: RUQ clips. Weak inspiration. No acute pathology ASSESSMENT/PLAN: 36 y/o F with PMH ventral hernia, who presented to the ED c/o 10/10 stabbing pain in her mid-abdomen. Pt found to have incarcerated incisional ventral hernia. #s/p Incarcerated ventral hernia repair - PO Day1 -afebrile, without sepsis, pt is not tachy, resting comfortably -surgical incision healing well, using abdomen binder -have ordered incentive spirometry -has been tolerating reg diet so far. without flatus, BM -Received ancef 1gm x 1 prior to OR -IV NS 100 cc/hr -Pain control as per surgery: roxicodone 5mg PO q4h PRN -Nausea zofran 4mg PO q6h PRN -Post-op PT for mobilization; has been OOB. continue to encourage -surgeon: Dr. Fabian #F/E/N -IV NS 100 cc/hr -Continue to monitor lytes -regular diet #PPX -SCD's, Hep SQ 5000 TID #Dispo post-op care; for d/c Visit type - Emergency Visit Emergency Visit: No - New Patient This patient is new to me today: No - Critical Care Critical Care patient: No
[2017-07-06 08:52] LABS: ANION GAP 10 (8-16); BLOOD UREA NITROGEN 5 mg/dL (7-18); CALCIUM 8.4 mg/dL (8.5-10.1); CHLORIDE 107 mmol/L (98-107); CO2 24 mmol/L (21-32); CREATININE 0.6 mg/dL (0.55-1.02); GLUCOSE,RANDOM 88 mg/dL (74-106); SODIUM 141 mmol/L (136-145)
--- NOTE | 2017-07-06 08:59 | PN ---
Progress Note (short form) - Note Progress Note: Attending Surgeon POD#1 No c/o; tolerated diet; ambulated and voided. VSS AF abdo-soft; dressing c/d/i; binder in place. WBC-nl IMP: doing well PLAN: Discharge today to office f/u next week; instructions given. Pedro Fabian MD FACS
[2017-07-06 09:14] LABS: MEAN PLT VOLUME 9.2 fl (7.5-11.1); PLATELET COUNT 239 K/MM3 (134-434)
--- NOTE | 2017-07-06 09:42 | PN ---
Teaching Attending Note Name of Resident: Kym Solano ATTENDING PHYSICIAN STATEMENT I saw and evaluated the patient. I reviewed the resident's note and discussed the case with the resident. I agree with the resident's findings and plan as documented. SUBJECTIVE: Patient is comfortable, tolerated diet well. with no acute dsitress. no shortness of breath, feels ready to go home. OBJECTIVE: Vital Signs Temperature 98.6 F 07/06/17 06:44 Pulse Rate 58 L 07/06/17 06:44 Respiratory Rate 18 07/06/17 06:44 Blood Pressure 111/59 07/06/17 06:44 O2 Sat by Pulse Oximetry (%) 95 07/05/17 21:00 CBCD WBC 9.4 K/mm3 (4.0-10.0) 07/06/17 07:00 RBC 4.19 M/mm3 (3.60-5.2) 07/06/17 07:00 Hgb 11.7 GM/dL (10.7-15.3) 07/06/17 07:00 Hct 35.9 % (32.4-45.2) 07/06/17 07:00 MCV 85.7 fl (80-96) 07/06/17 07:00 MCHC 32.5 g/dl (32.0-36.0) 07/06/17 07:00 RDW 15.1 % (11.6-15.6) 07/06/17 07:00 Plt Count 239 K/MM3 (134-434) 07/06/17 07:00 MPV 9.2 fl (7.5-11.1) D 07/06/17 07:00 CMP Sodium 141 mmol/L (136-145) 07/06/17 07:00 Potassium 4.0 mmol/L (3.5-5.1) 07/06/17 07:00 Chloride 107 mmol/L (98-107) 07/06/17 07:00 Carbon Dioxide 24 mmol/L (21-32) 07/06/17 07:00 Anion Gap 10 (8-16) 07/06/17 07:00 BUN 5 mg/dL (7-18) L 07/06/17 07:00 Creatinine 0.6 mg/dL (0.55-1.02) 07/06/17 07:00 Creat Clearance w eGFR > 60 (>60) 07/04/17 22:05 Random Glucose 88 mg/dL (74-106) 07/06/17 07:00 Calcium 8.4 mg/dL (8.5-10.1) L 07/06/17 07:00 Total Bilirubin 0.6 mg/dL (0.2-1.0) D 07/04/17 22:05 AST 17 U/L (15-37) 07/04/17 22:05 ALT 21 U/L (12-78) 07/04/17 22:05 Alkaline Phosphatase 74 U/L (45-117) 07/04/17 22:05 Total Protein 7.3 g/dl (6.4-8.2) 07/04/17 22:05 Albumin 3.7 g/dl (3.4-5.0) 07/04/17 22:05 Current Medications Generic Name Dose Route Start Last Admin Trade Name Freq PRN Reason Stop Dose Admin Acetaminophen 650 mg 07/06/17 05:39 07/06/17 05:56 Tylenol - PO 650 mg Q6H PRN Administration PAIN LEVEL 1-5 Fentanyl 50 mcg 07/05/17 18:37 Sublimaze Injection - IVPUSH [id number] PRN PAIN-PACU ORDER X 4 DOSES ONLY Heparin Sodium (Porcine) 5,000 unit 07/05/17 22:00 07/06/17 05:26 Heparin - SQ 5,000 unit TID SOLEDAD Administration Sodium Chloride 1,000 mls @ 100 mls/hr 07/05/17 18:37 07/06/17 07:31 Normal Saline - IV Not Given ASDIR [facility] Ondansetron HCl 4 mg 07/05/17 18:37 Zofran Injection IVPUSH Q6H PRN NAUSEA AND/OR VOMITING Oxycodone HCl 5 mg 07/05/17 18:37 Roxicodone - PO 07/06/17 17:00 Q4H PRN PAIN LEVEL 1-5 Promethazine HCl 12.5 mg 07/05/17 18:37 Phenergan Injection - IVPB Q6H PRN NAUSEA-FOR RESCUE AFTER 15 MIN Home Medications Medication Instructions Recorded NK [No Known Home Medication] 02/20/17 PE: positive for hypoactive bowel, positive for surgery, positive for a binder. rest of PE per resident's note. 07/04/17: Abdomen US: findings are suggestive of a ventral/umbilical hernia sac with herniating bowel loops and fluid. Please correlate with a CT scan of abdomen and pelvis done later on the same date 07/04/17: Abdomen/Pelvis CT: slightly dilated fluid containing proximal and mid small bowel loops in the L upper and mid abdomen bleeding into a large umbillical/supraumbilical hernia sac containing small bowel loops, a small amount of fluid and mesenteric stranding. Distal small bowel loops are not dilated. Although the hernia defect in the abdominal wall measures approx 3cm in maximum dimension, findings are suggestive of incarceration with mid small bowel obstruction likely partial. s/p cholecystectomy with a 1.8 cm fluid collection in the GB fossa. Scattered subcentimeter mesenteric LN wihch are nonspecific, likely post inflammatory/infectious. 07/04/17: CXR: RUQ clips. Weak inspiration. No acute pathology ASSESSMENT/PLAN: Patient is a 36 y/o F with PMH ventral hernia, who presented to the ED with severe mid-abdomenal pain with incarcerated incisional ventral hernia. #POD #1 for Incarcerated ventral hernia repair : surgeon Dr. Fabian , patient is comfortable , was able to eat her lunch , tolerated it well. Patient will follow up with in his office, appointment was given. will discharge patient home. Is ok to discharge the patient as per surgeon. 35minutes discharge time.
--- NOTE | 2017-07-06 09:59 | PN ---
Progress Note (short form) - Note Progress Note: Post op day#1.S/P Repair of incarcerated incisional hernia under GA uneventful.Patient stable.No any anesthesia related problem.Patient DC from the anesthesia care.
[2017-07-06 13:56] VITALS: BP 120/66; PULSE 88; TEMP 98
--- NOTE | 2017-07-06 16:15 | DS ---
Physical Exam: SUBJECTIVE: Patient seen and examined at bedside. Overnight, pt returned from OR. Voiding freely, abdomen binder intact. Pt medicated with morphine initially for pain, however had one episode of NBNB emesis. Continued with tylenol. Today , pt states that her abdomen is sore. Tolerating diet, has been eating apple sauce and due for breakfast. Has been OOB. Denies chest pain, SOB, or changes in urinary function. OBJECTIVE: Vital Signs Period Temp Pulse Resp BP Sys/Black Pulse Ox Last 24 Hr 97.8 F-98.6 F 58-88 16-20 106-133/47-79 95-100 PHYSICAL EXAM GENERAL: Pleasant female. lying down. awake, alert, and fully oriented, in no acute distress. HEAD: Normal with no signs of trauma. EYES: PERRL, extraocular movements intact, sclera anicteric, conjunctiva clear. No ptosis. ENT: Ears normal, nares patent, oropharynx clear without exudates, moist mucous membranes. NECK: Trachea midline, supple. LUNGS: Breath sounds equal, clear to auscultation bilaterally, no wheezes, no crackles, no accessory muscle use. HEART: Regular rate and rhythm, S1, S2 without murmur, rub or gallop. ABDOMEN: Soft, obese, diffusely TTP superior to umbilicus, nondistended, normoactive bowel sounds. +surgical site intact with mild serosanguineous drainage. EXTREMITIES: 2+ posterior tibial pulses, warm, well-perfused, no edema. NEUROLOGICAL: Cranial nerves II through XII grossly intact. Normal speech PSYCH: Positive mood, normal affect. SKIN: Warm, dry, normal turgor LABS 07/04/17 07/04/17 07/05/17 22:05 22:05 05:35 WBC 8.5 7.7 Hgb 12.5 11.8 Hct 36.7 35.0 Plt Count 306 284 Sodium 141 Potassium 4.2 BUN 7 Creatinine 0.7 AST 17 ALT 21 07/05/17 07/06/17 07/06/17 05:35 07:00 07:00 WBC 9.4 Hgb 11.7 Hct 35.9 Plt Count 239 Sodium 138 141 Potassium 4.3 4.0 BUN 5 L 5 L Creatinine 0.7 0.6 AST ALT Radiology 07/04/17: Abdomen US: findings are suggestive of a ventral/umbilical hernia sac with herniating bowel loops and fluid. Please correlate with a CT scan of abdomen and pelvis done later on the same date 07/04/17: Abdomen/Pelvis CT: slightly dilated fluid containing proximal and mid small bowel loops in the L upper and mid abdomen bleeding into a large umbillical/supraumbilical hernia sac containing small bowel loops, a small amount of fluid and mesenteric stranding. Distal small bowel loops are not dilated. Although the hernia defect in the abdominal wall measures approx 3cm in maximum dimension, findings are suggestive of incarceration with mid small bowel obstruction likely partial. s/p cholecystectomy with a 1.8 cm fluid collection in the GB fossa. Scattered subcentimeter mesenteric LN wihch are nonspecific, likely post inflammatory/infectious. 07/04/17: CXR: RUQ clips. Weak inspiration. No acute pathology HOSPITAL COURSE: Date of Admission:07/04/17 Date of Discharge: 07/06/17 Admit diagnosis: incarcerated ventral hernia 36 y/o F with hx of ventral hernia, who presented to the hospital with 10/10, stabbing, mid abdominal pain x [address] abdomen and pelvis was done and showed slightly dilated fluid containing proximal and mid small bowel loops in the L upper and mid abdomen, bleeding into a large umbilical/supraumbilical hernia sac containing small bowel loops. Suggestive of incarceration with mid small bowel obstruction likely partial, as per radiology. On 07/05/17, pt underwent incarcerated ventral hernia repair - surgeon, Dr. Fabian. Subsequently, pt was maintained on IVF, tylenol for pain, and zofran for nausea. Her diet was advanced and she was able to tolerate full diet on day of discharge. Pt was OOB , ambulating well and voiding freely. Surgical incision clean, and abdominal binder in place. Pt to follow up with surgery and GI in a week. Minutes to complete discharge: 42 Discharge Summary Reason For Visit: INCARCERATED HERNIA,CHRONIC DIARRHEA,NAUSEA Current Active Problems Chronic diarrhea (Acute) Nausea and vomiting (Acute) Ventral hernia (Acute) Condition: Stable - Instructions Diet, Activity, Other Instructions: Dr. Fabian Discharge Instructions Dear GREGG MCELROY, Post Operative Instructions Physical activity Resume your normal everyday activity as tolerated no heavy lifting or exercise until seen by your surgeon. You may walk unlimited amounts of and climb stairs. You may resume driving the car when you feel safe and comfortable behind the wheel. Wound care If you have a bandage, leave it on, and keep dry for 48 - 72 hours. After that time discard the outer bandage. If there are tapes on the skin under the outer bandage, leave them in place. They will peel off in the next 7 to 10 days. Do Not peel them off. You may shower 2 days after surgery. If there are tapes present on the skin, they can get wet. Diet There are no dietary restrictions. Eat healthy, high-fiber foods. Drink 6 to 8 glasses of liquid each day. This will assist in keeping your bowels are regular. Pain management You may take Tylenol or acetaminophen or Ibuprofen (for example, Motrin, Advil etc.) Any pain prescription medication ordered should be taken as prescribed for moderate to severe pain. Call Dr. Fabian for any of the following: Severe pain not relieved by medication Fever of 101 or higher Excessive bleeding or drainage on dressing Inability to urinate Call the office at [phone] for a post operative appointment in 7 - 10 days. You were in the hospital for an incarcerated ventral hernia. This means that the hernia in your abdomen became trapped in a weak point in your abdominal wall. You underwent surgery to have this fixed. We would also like you to see a gastrointestinal (GI) doctor, Dr. Torres in a week to discuss your visit. We hope you feel better soon. Referrals: Pedro Fabian MD [Staff Physician] - 07/13/17 Wes Torres MD [Staff Physician] - 1 Week Disposition: HOME - Home Medications Comprehensive Discharge Medication List: Ambulatory Orders NK [No Known Home Medication] 02/20/17 This patient is new to me today: No Emergency Visit: No Critical Care patient: No - Discharge Referral Referred to [facility] Med [facility] No
--- NOTE | 2017-07-07 08:48 | OP ---
Operative Note - Note: Operative Date: 07/05/17 Pre-Operative Diagnosis: incarcerated incisional hernia Operation: repair incarcerated incisional hernia Surgeon: Pedro Fabian Machine Long Goods Helper: Shine Saleem Anesthesia: General Specimens Removed: hernia sac Estimated Blood Loss (mls): 20
--- NOTE | 2017-07-07 10:23 | OP ---
DATE OF OPERATION: 07/05/2017 PREOPERATIVE DIAGNOSIS: Incarcerated incisional hernia. POSTOPERATIVE DIAGNOSIS: Incarcerated incisional hernia. PROCEDURE: Repair of incarcerated incisional hernia. SURGEON: Pedro Fabian MD SUPERVISOR NUCLEAR MEDICINE: Shine Saleem PA-C ANESTHESIA: General; Timothy Euceda MD. OPERATIVE FINDINGS: There was an incarcerated incisional hernia originating from the previous supraumbilical port site from a previous laparoscopic cholecystectomy. Incarcerated in the hernia was viable small bowel. The defect at the fascia was approximately 4 cm in greatest dimension and the rest of the findings were unremarkable. PROCEDURE: The patient was placed on the operating room table in supine position, and after the induction of general anesthesia, the patient's abdomen was prepped with ChloraPrep and draped in sterile fashion. Examination under anesthesia revealed the defect just behind the umbilicus. An infraumbilical skin incision was made from the 3 to 9 o'clock position using the scalpel and taken down through skin and subcutaneous tissue. The hernia sac was identified and dissected from the umbilicus and circumferentially from the abdominal wall. The sac was opened and the previously noted findings were observed. The incarcerated small bowel which was viable reduced spontaneously. Redundant sac and preperitoneal fat were excised using electrocautery and sent for pathological examination. Again, there was no evidence of bloody, intraperitoneal fluid and several loops of bowel that were examined proximally and distally were totally viable and otherwise unremarkable. The hernia was then repaired using multiple number 1 horizontal mattress Ti-Cron sutures. Once the defect was repaired, hemostasis was secured with electrocautery, and the wound copiously irrigated with sterile saline. The operative field was infiltrated with 0.5% Marcaine and the incision closed in layers by closing residual hernia sac over the repair with a continues 2-0 Vicryl, the deep dermis reapproximated with interrupted 3-0 Vicryl, and the skin edges with 4-0 Monocryl in a subcuticular continuous fashion. Steri-Strips, fluffs, and further dry, sterile dressings were placed, and the procedure terminated at this point. The patient aroused from general anesthesia, and transferred to the postanesthesia care unit, in stable condition, awake, and alert. ESTIMATED BLOOD LOSS: 20 mL. REPLACEMENTS: Crystalloid. DRAINS: None. SPECIMENS: Hernia sac to Pathology. I, Pedro Fabian, was physically present in the operating room from the time the patient was placed on the operating room table until he was transferred to the postanesthesia care unit in my accompaniment. MD DIDI Umana/[id number] MTDD
--- NOTE | 2017-07-07 13:59 | PATH ---
Surgical Pathology Report Patient Name: GREGG MCELROY Med. Rec. #: [id number] /Age/Gender: 1980 (Age: 36) / F Account: [id number] Location: [facility] MED/SURG Taken: 07/05/2017 Received: 07/06/2017 Reported: 07/07/2017 Physicians: Pedro Fabian MD Specimen(s) Received HERNIA SAC Clinical History Incarcerated incisional hernia Final Diagnosis HERNIA SAC, EXCISION: CONSISTENT WITH HERNIA SAC. Electronically Signed Yuly Caro M.D. Gross Description Received in formalin labeled "hernia sac," is a 9.5 x 4.5 x 1.0 cm aggregate of infante-pink fibromembranous tissue with attached fat. Coal Tram Driver sections are submitted in one cassette. /07/06/201707/06/2017
== END 2017-07-06 17:01 | disposition home or self-care (01) | DRG 227 ==
LOC: JER 18:49 → JERBED 23:53 → J8W 07-05 05:53
PROVIDERS: ADMIT Internal Medicine; ATTEND Internal Medicine
PROC: 0WQF0ZZ Repair Abdominal Wall, Open Approach (ICD-10-PCS; principal; 2017-07-05 15:24)
DX: K43.0 Incisional hernia with obstruction, without gangrene (principal); Z68.41 Body mass index [BMI] 40.0-44.9, adult; E66.9 Obesity, unspecified; R19.7 Diarrhea, unspecified; R11.2 Nausea with vomiting, unspecified
CPT/HCPCS: 36415; 71046-TC-FY; 74176-TC; 76705; 80048; 80053; 83605; 83735; 84100; 84703; 85025; 85027; 85610; 85730; 86850; 86900; 86901; 88302-TC; 93005; 93010; 94010; 94760; 97116-GP; 97161-GP; 99284-25; J0131; J1644; J7030

== ENCOUNTER 2020-06-18 16:18 | Emergency (ER) | payer OTHER ==
[2020-06-18 16:41] VITALS: BP 110/78; PULSE 61; TEMP 98.2; BMI 39.5
[2020-06-18] MEDS ORDERED: IBUPROFEN 600 MG TABLET (FP) PO ONE ×2 (17:31→17:36)
[2020-06-18] MEDS ORDERED: DIPHTH,PERTUSS(ACELL),TET 0.5 ML DISP.SYRIN IM ONE ×2 (17:31→17:36)
[2020-06-18] MEDS ORDERED: BACITRACIN 15 GM TUBE TOPICAL OINTMENT TP ONE (17:32)
[2020-06-18] MEDS ORDERED: BACITRACIN 15 GM TUBE TOPICAL OINTMENT ONE (17:36)
== END 2020-06-18 17:51 | disposition home or self-care (01) ==
LOC: JERFT 16:18
PROC: 3E0234Z Introduction of Serum, Toxoid and Vaccine into Muscle, Percutaneous Approach (ICD-10-PCS; principal; 2020-06-18)
DX: M25.572 Pain in left ankle and joints of left foot (principal)
CPT/HCPCS: 73610-TC-LT-FY; 73630-TC-LT; 90471; 90715; 99284-25

== ENCOUNTER 2021-05-31 22:12 | Emergency (ER) | payer OTHER ==
[2021-05-31 22:43] VITALS: BP 127/86; PULSE 89; TEMP 98.3; BMI 29.8
[2021-06-02 15:07] LABS: SARS-CoV-2 NAA Detected (Not Detected)
== END 2021-06-01 00:26 | disposition home or self-care (01) ==
LOC: JER 22:12
DX: U07.1 COVID-19 (principal)
CPT/HCPCS: 99283-25; C9803-CS; U0003; U0005

== ENCOUNTER 2023-01-23 12:28 | Emergency (ER) | payer OTHER ==
[2023-01-23 12:47] VITALS: BMI 46.7
[2023-01-23] MEDS ORDERED: ACETAMINOPHEN 500 MG TABLET (FP) PO ONE (16:06)
[2023-01-23] MEDS ORDERED: ACETAMINOPHEN 500 MG TABLET (FP) ONE (16:07)
[2023-01-23 16:27] VITALS: BP 128/60; PULSE 72; RESP 16; TEMP 98.6
== END 2023-01-23 16:27 | disposition home or self-care (01) ==
LOC: JER 12:28
DX: K46.9 Unspecified abdominal hernia without obstruction or gangrene (principal); R10.31 Right lower quadrant pain
CPT/HCPCS: 99283-25